=== PATIENT | female | born 1945 | race Caucasian/White ===

== ENCOUNTER 2017-07-08 10:00 | Outpatient (RCR) | payer MEDICARE, SELFPAY | END 2017-08-05 | LOC: PT 10:00 | PROVIDERS: PCP Family Medicine; Visit Provider Family Medicine | DX: M54.32 Sciatica, left side (principal); M54.31 Sciatica, right side | CPT/HCPCS: G8978; G8979; G8980; 97010; 97012; 97014; 97161; G0283 ==

== ENCOUNTER → 2017-07-27 | Outpatient (CLI) | payer MEDICARE, SELFPAY | PROVIDERS: Visit Provider Internal Medicine | DX: C50.911 Malignant neoplasm of unspecified site of right female breast (principal) | CPT/HCPCS: 36415; 80053; 85025 ==

== ENCOUNTER → 2017-08-03 | Outpatient (CLI) | payer MEDICARE, SELFPAY | PROVIDERS: Visit Provider Internal Medicine | DX: C50.911 Malignant neoplasm of unspecified site of right female breast (principal) | CPT/HCPCS: 36415; 80053; 85025 ==

== ENCOUNTER → 2017-08-31 08:10 | Outpatient (CLI) | payer MEDICARE, SELFPAY ==
[2017-08-31 09:23] LABS: Basophils # 0.1 K/mm3 (0-0.2); Basophils % 2.5 % (0.1-2.0); Eosinophils # 0.1 K/mm3 (0.0-0.4); Eosinophils % 2.7 % (0.1-12.0); Hematocrit 34.5 % (37.0-47.0); Hemoglobin 11.3 g/dL (12.2-16.2); Lymphocytes # 1.4 K/mm3 (0.7-4.5); Mean Corpuscular HGB Conc 32.8 g/dL (31.8-35.4); Mean Corpuscular Hemoglobin 33.8 pg (27.0-31.2); Mean Corpuscular Volume 103.3 fl (81-99); Monocytes # 0.2 K/mm3 (0.1-1.0); Monocytes % 6.2 % (1.7-9.3); Neutrophils # 1.4 K/mm3 (1.8-7.8); Neutrophils % 43.7 % (37.0-80.0); Platelet Count 147 K/mm3 (142-424); Red Blood Count 3.34 M/mm3 (4.20-5.40); Red Cell Distribution Width 15.6 % (11.5-17.5); White Blood Count 3.1 K/mm3 (4.8-10.8)
[2017-08-31 09:54] LABS: Alanine Aminotransferase 19 U/L (12-78); Albumin Level 3.9 gm/dL (3.4-5.0); Albumin/Globulin Ratio 1.5 (1.1-1.8); Alkaline Phosphatase 62 U/L (46-116); Aspartate Amino Transferase 17 U/L (15-37); Bilirubin,Total 0.4 mg/dL (0.2-1.0); Blood Urea Nitrogen 21 mg/dL (7-18); Calcium 8.4 mg/dL (8.5-10.1); Carbon Dioxide 28 mmol/L (21.0-32.0); Chloride 105 mmol/L (98-107); Creatinine,Serum 1.06 mg/dL (0.55-1.02); Estimated Glomerular Filt Rate 51 ml/min (>60); GFR (African American) 62 ML/MIN (>60); Globulin 2.6 gm/dl (1.3-3.2); Glucose 93 mg/dL (74-106); Sodium 142 mmol/L (136-145); Total Protein,Serum 6.5 gm/dL (6.4-8.2)
== END ==
PROVIDERS: PCP Family Medicine; Visit Provider Internal Medicine
DX: C50.919 Malignant neoplasm of unspecified site of unspecified female breast (principal)
CPT/HCPCS: 36415; 80053; 85025

== ENCOUNTER → 2017-10-04 08:08 | Outpatient (CLI) | payer MEDICARE, SELFPAY ==
[2017-10-04 08:36] LABS: Basophils # 0.1 K/mm3 (0-0.2); Basophils % 3.6 % (0.1-2.0); Eosinophils # 0.1 K/mm3 (0.0-0.4); Eosinophils % 3.4 % (0.1-12.0); Hematocrit 33.5 % (37.0-47.0); Hemoglobin 11.1 g/dL (12.2-16.2); Lymphocytes # 1.3 K/mm3 (0.7-4.5); Lymphocytes % 38.1 K/mm3 (10-50); Mean Corpuscular HGB Conc 33.1 g/dL (31.8-35.4); Mean Corpuscular Hemoglobin 34.4 pg (27.0-31.2); Mean Corpuscular Volume 103.9 fl (81-99); Mean Platelet Volume 8.2 fl (7.4-10.4); Monocytes # 0.3 K/mm3 (0.1-1.0); Monocytes % 8.9 % (1.7-9.3); Neutrophils # 1.6 K/mm3 (1.8-7.8); Platelet Count 244 K/mm3 (142-424); Red Blood Count 3.22 M/mm3 (4.20-5.40); White Blood Count 3.4 K/mm3 (4.8-10.8)
[2017-10-04 09:13] LABS: Alanine Aminotransferase 19 U/L (12-78); Albumin Level 3.8 gm/dL (3.4-5.0); Albumin/Globulin Ratio 1.5 (1.1-1.8); Alkaline Phosphatase 55 U/L (46-116); Anion Gap 12.9 mEq/L (5-15); Aspartate Amino Transferase 12 U/L (15-37); Bilirubin,Total 0.4 mg/dL (0.2-1.0); Blood Urea Nitrogen 22 mg/dL (7-18); Calcium 8.7 mg/dL (8.5-10.1); Carbon Dioxide 27 mmol/L (21.0-32.0); Chloride 106 mmol/L (98-107); Creatinine,Serum 1.22 mg/dL (0.55-1.02); Estimated Glomerular Filt Rate 43 ml/min (>60); GFR (African American) 52 ML/MIN (>60); Globulin 2.6 gm/dl (1.3-3.2); Glucose 95 mg/dL (74-106); Potassium 3.9 mmoL/L (3.5-5.1); Sodium 142 mmol/L (136-145); Total Protein,Serum 6.4 gm/dL (6.4-8.2)
== END ==
PROVIDERS: Visit Provider Internal Medicine
DX: C50.911 Malignant neoplasm of unspecified site of right female breast (principal); M85.80 Other specified disorders of bone density and structure, unspecified site
CPT/HCPCS: 36415; 80053; 85025

== ENCOUNTER 2017-10-11 08:46 | Outpatient (CLI) | payer MEDICARE, SELFPAY ==
[2017-10-11 09:00] VITALS: BP 123/67; PULSE 66; RESP 20; TEMP 36.4; O2SAT 96
[2017-10-11 10:15] VITALS: BP 125/74; PULSE 68; RESP 20; TEMP 36.9; O2SAT 97
== END 2017-10-11 10:20 | disposition home or self-care (01) ==
LOC: INF 08:46
PROVIDERS: Family Provider Family Medicine; PCP Family Medicine; Visit Provider Internal Medicine
DX: C50.911 Malignant neoplasm of unspecified site of right female breast (principal)
CPT/HCPCS: 96365; J3489

== ENCOUNTER → 2017-11-09 07:54 | Outpatient (CLI) | payer MEDICARE, SELFPAY ==
[2017-11-09 08:38] LABS: Basophils # 0.2 K/mm3 (0-0.2); Basophils % 3.7 % (0.1-2.0); Eosinophils # 0.2 K/mm3 (0.0-0.4); Eosinophils % 3.7 % (0.1-12.0); Hemoglobin 11.3 g/dL (12.2-16.2); Lymphocytes # 1.6 K/mm3 (0.7-4.5); Lymphocytes % 35.3 K/mm3 (10-50); Mean Corpuscular HGB Conc 32.4 g/dL (31.8-35.4); Mean Corpuscular Hemoglobin 34.4 pg (27.0-31.2); Mean Corpuscular Volume 106.1 fl (81-99); Mean Platelet Volume 7.6 fl (7.4-10.4); Monocytes # 0.4 K/mm3 (0.1-1.0); Monocytes % 7.7 % (1.7-9.3); Neutrophils # 2.3 K/mm3 (1.8-7.8); Neutrophils % 49.6 % (37.0-80.0); Platelet Count 392 K/mm3 (142-424); Red Cell Distribution Width 15.2 % (11.5-17.5); White Blood Count 4.6 K/mm3 (4.8-10.8)
[2017-11-09 10:42] LABS: Alanine Aminotransferase 17 U/L (12-78); Albumin Level 3.9 gm/dL (3.4-5.0); Albumin/Globulin Ratio 1.6 (1.1-1.8); Alkaline Phosphatase 58 U/L (46-116); Anion Gap 13.1 mEq/L (5-15); Aspartate Amino Transferase 17 U/L (15-37); Bilirubin,Total 0.5 mg/dL (0.2-1.0); Blood Urea Nitrogen 19 mg/dL (7-18); Calcium 8.9 mg/dL (8.5-10.1); Carbon Dioxide 27 mmol/L (21.0-32.0); Chloride 107 mmol/L (98-107); Creatinine,Serum 1.13 mg/dL (0.55-1.02); Estimated Glomerular Filt Rate 47 ml/min (>60); GFR (African American) 57 ML/MIN (>60); Globulin 2.5 gm/dl (1.3-3.2); Glucose 101 mg/dL (74-106); Potassium 4.1 mmoL/L (3.5-5.1); Sodium 143 mmol/L (136-145); Total Protein,Serum 6.4 gm/dL (6.4-8.2)
== END ==
PROVIDERS: Visit Provider Nurse Practitioner
DX: C50.911 Malignant neoplasm of unspecified site of right female breast (principal); D64.9 Anemia, unspecified; D70.9 Neutropenia, unspecified
CPT/HCPCS: 36415; 80053; 85025

== ENCOUNTER → 2017-12-06 08:12 | Outpatient (CLI) | payer MEDICARE, SELFPAY ==
[2017-12-06 08:42] LABS: Basophils # 0.1 K/mm3 (0-0.2); Basophils % 2.8 % (0.1-2.0); Eosinophils # 0.1 K/mm3 (0.0-0.4); Eosinophils % 2.1 % (0.1-12.0); Hematocrit 31.9 % (37.0-47.0); Lymphocytes # 1.2 K/mm3 (0.7-4.5); Lymphocytes % 45.7 K/mm3 (10-50); Mean Corpuscular HGB Conc 34.5 g/dL (31.8-35.4); Mean Corpuscular Hemoglobin 37.1 pg (27.0-31.2); Mean Corpuscular Volume 107.4 fl (81-99); Mean Platelet Volume 7.9 fl (7.4-10.4); Monocytes # 0.2 K/mm3 (0.1-1.0); Monocytes % 8.9 % (1.7-9.3); Neutrophils % 40.5 % (37.0-80.0); Platelet Count 155 K/mm3 (142-424); Red Blood Count 2.97 M/mm3 (4.20-5.40); Red Cell Distribution Width 15.2 % (11.5-17.5); White Blood Count 2.5 K/mm3 (4.8-10.8)
[2017-12-06 10:43] LABS: Alanine Aminotransferase 15 U/L (12-78); Albumin/Globulin Ratio 1.5 (1.1-1.8); Alkaline Phosphatase 50 U/L (46-116); Bilirubin,Total 0.5 mg/dL (0.2-1.0); Blood Urea Nitrogen 19 mg/dL (7-18); Calcium 9.3 mg/dL (8.5-10.1); Carbon Dioxide 26 mmol/L (21.0-32.0); Chloride 107 mmol/L (98-107); Creatinine,Serum 0.98 mg/dL (0.55-1.02); Estimated Glomerular Filt Rate 56 ml/min (>60); GFR (African American) 68 ML/MIN (>60); Globulin 2.7 gm/dl (1.3-3.2); Glucose 98 mg/dL (74-106); Sodium 143 mmol/L (136-145); Total Protein,Serum 6.7 gm/dL (6.4-8.2)
[2017-12-06 11:21] LABS: Anion Gap 14.4 mEq/L (5-15)
[2017-12-06 11:40] LABS: Aspartate Amino Transferase 23 U/L (15-37); Potassium 4.4 mmoL/L (3.5-5.1)
== END ==
PROVIDERS: Visit Provider Nurse Practitioner
DX: C50.911 Malignant neoplasm of unspecified site of right female breast (principal); D64.9 Anemia, unspecified; D70.9 Neutropenia, unspecified
CPT/HCPCS: 36415; 80053; 85025

== ENCOUNTER → 2017-12-13 08:03 | Outpatient (CLI) | payer MEDICARE, SELFPAY ==
[2017-12-13 08:44] LABS: Basophils # 0.1 K/mm3 (0-0.2); Basophils % 2.5 % (0.1-2.0); Eosinophils # 0.1 K/mm3 (0.0-0.4); Eosinophils % 1.9 % (0.1-12.0); Hematocrit 34.1 % (37.0-47.0); Hemoglobin 11.4 g/dL (12.2-16.2); Lymphocytes # 0.5 K/mm3 (0.7-4.5); Lymphocytes % 12.4 K/mm3 (10-50); Mean Corpuscular HGB Conc 33.3 g/dL (31.8-35.4); Mean Corpuscular Hemoglobin 36.1 pg (27.0-31.2); Mean Corpuscular Volume 108.2 fl (81-99); Mean Platelet Volume 7.5 fl (7.4-10.4); Monocytes # 0.3 K/mm3 (0.1-1.0); Monocytes % 7.2 % (1.7-9.3); Neutrophils # 3.1 K/mm3 (1.8-7.8); Neutrophils % 75.9 % (37.0-80.0); Platelet Count 335 K/mm3 (142-424); Red Blood Count 3.16 M/mm3 (4.20-5.40); Red Cell Distribution Width 14.7 % (11.5-17.5)
== END ==
PROVIDERS: Visit Provider Internal Medicine
DX: C50.911 Malignant neoplasm of unspecified site of right female breast (principal)
CPT/HCPCS: 36415; 85025

== ENCOUNTER → 2018-01-04 08:37 | Outpatient (CLI) | payer MEDICARE, SELFPAY ==
[2018-01-04 08:52] LABS: Basophils # 0.1 K/mm3 (0-0.2); Basophils % 2.7 % (0.1-2.0); Eosinophils # 0.1 K/mm3 (0.0-0.4); Eosinophils % 2.5 % (0.1-12.0); Hematocrit 33.9 % (37.0-47.0); Hemoglobin 10.6 g/dL (12.2-16.2); Lymphocytes # 0.8 K/mm3 (0.7-4.5); Mean Corpuscular HGB Conc 31.2 g/dL (31.8-35.4); Mean Corpuscular Hemoglobin 33.5 pg (27.0-31.2); Mean Corpuscular Volume 107.4 fl (81-99); Mean Platelet Volume 8.4 fl (7.4-10.4); Monocytes # 0.1 K/mm3 (0.1-1.0); Monocytes % 4.6 % (1.7-9.3); Neutrophils # 1.2 K/mm3 (1.8-7.8); Neutrophils % 53.1 % (37.0-80.0); Platelet Count 148 K/mm3 (142-424); Red Blood Count 3.15 M/mm3 (4.20-5.40); Red Cell Distribution Width 15.9 % (11.5-17.5); White Blood Count 2.2 K/mm3 (4.8-10.8)
[2018-01-04 09:46] LABS: Alanine Aminotransferase 15 U/L (12-78); Albumin Level 3.9 gm/dL (3.4-5.0); Albumin/Globulin Ratio 1.6 (1.1-1.8); Alkaline Phosphatase 49 U/L (46-116); Anion Gap 13.8 mEq/L (5-15); Aspartate Amino Transferase 14 U/L (15-37); Bilirubin,Total 0.6 mg/dL (0.2-1.0); Blood Urea Nitrogen 21 mg/dL (7-18); Calcium 9.1 mg/dL (8.5-10.1); Carbon Dioxide 26 mmol/L (21.0-32.0); Chloride 108 mmol/L (98-107); Creatinine,Serum 1.33 mg/dL (0.55-1.02); Estimated Glomerular Filt Rate 39 ml/min (>60); GFR (African American) 47 ML/MIN (>60); Globulin 2.5 gm/dl (1.3-3.2); Glucose 99 mg/dL (74-106); Potassium 4.8 mmoL/L (3.5-5.1); Sodium 143 mmol/L (136-145); Total Protein,Serum 6.4 gm/dL (6.4-8.2)
== END ==
PROVIDERS: Visit Provider Internal Medicine
DX: C50.911 Malignant neoplasm of unspecified site of right female breast (principal)
CPT/HCPCS: 36415; 80053; 85025

== ENCOUNTER 2018-01-16 09:00 | Outpatient (CLI) | payer MEDICARE, SELFPAY ==
[2018-01-16 09:36] VITALS: BP 116/56; PULSE 57; RESP 18; TEMP 36.7; O2SAT 98
[2018-01-16 09:51] VITALS: BP 114/54; PULSE 59; RESP 18; TEMP 36.7; O2SAT 97
[2018-01-16 10:05] VITALS: BP 111/67; PULSE 61; RESP 18; O2SAT 97
== END 2018-01-16 10:05 | disposition home or self-care (01) ==
LOC: INF 09:14
PROVIDERS: Family Provider Family Medicine; PCP Family Medicine; Visit Provider Internal Medicine
DX: C50.911 Malignant neoplasm of unspecified site of right female breast (principal)
CPT/HCPCS: 96365; J3489

== ENCOUNTER → 2018-01-31 07:42 | Outpatient (CLI) | payer MEDICARE, SELFPAY ==
[2018-01-31 08:08] LABS: Basophils # 0.2 K/mm3 (0-0.2); Basophils % 2.8 % (0.1-2.0); Eosinophils # 0.4 K/mm3 (0.0-0.4); Eosinophils % 6.2 % (0.1-12.0); Hemoglobin 11.2 g/dL (12.2-16.2); Lymphocytes # 1.6 K/mm3 (0.7-4.5); Lymphocytes % 25.1 K/mm3 (10-50); Mean Corpuscular HGB Conc 31.2 g/dL (31.8-35.4); Mean Corpuscular Hemoglobin 32.5 pg (27.0-31.2); Mean Corpuscular Volume 104.3 fl (81-99); Mean Platelet Volume 8.8 fl (7.4-10.4); Monocytes # 0.4 K/mm3 (0.1-1.0); Monocytes % 7.1 % (1.7-9.3); Neutrophils # 3.7 K/mm3 (1.8-7.8); Neutrophils % 58.9 % (37.0-80.0); Platelet Count 309 K/mm3 (142-424); Red Blood Count 3.45 M/mm3 (4.20-5.40); Red Cell Distribution Width 15.3 % (11.5-17.5); White Blood Count 6.2 K/mm3 (4.8-10.8)
[2018-01-31 08:51] LABS: Alanine Aminotransferase 25 U/L (12-78); Albumin Level 3.8 gm/dL (3.4-5.0); Albumin/Globulin Ratio 1.4 (1.1-1.8); Alkaline Phosphatase 64 U/L (46-116); Anion Gap 10.9 mEq/L (5-15); Aspartate Amino Transferase 20 U/L (15-37); Bilirubin,Total 0.4 mg/dL (0.2-1.0); Blood Urea Nitrogen 20 mg/dL (7-18); Carbon Dioxide 30 mmol/L (21.0-32.0); Chloride 107 mmol/L (98-107); Creatinine,Serum 1.07 mg/dL (0.55-1.02); Estimated Glomerular Filt Rate 50 ml/min (>60); GFR (African American) 61 ML/MIN (>60); Globulin 2.7 gm/dl (1.3-3.2); Glucose 110 mg/dL (74-106); Potassium 4.9 mmoL/L (3.5-5.1); Sodium 143 mmol/L (136-145); Total Protein,Serum 6.5 gm/dL (6.4-8.2)
== END ==
PROVIDERS: Visit Provider Internal Medicine
DX: C50.911 Malignant neoplasm of unspecified site of right female breast (principal)
CPT/HCPCS: 36415; 80053; 85025

== ENCOUNTER → 2018-03-01 07:09 | Outpatient (CLI) | payer MEDICARE, SELFPAY ==
[2018-03-01 07:24] LABS: Basophils # 0.1 K/mm3 (0-0.2); Basophils % 2.2 % (0.1-2.0); Eosinophils # 0.1 K/mm3 (0.0-0.4); Eosinophils % 2.9 % (0.1-12.0); Hematocrit 32.6 % (37.0-47.0); Hemoglobin 10.9 g/dL (12.2-16.2); Lymphocytes # 1.1 K/mm3 (0.7-4.5); Lymphocytes % 49.9 K/mm3 (10-50); Mean Corpuscular HGB Conc 33.5 g/dL (31.8-35.4); Mean Corpuscular Hemoglobin 34.8 pg (27.0-31.2); Mean Corpuscular Volume 103.7 fl (81-99); Mean Platelet Volume 8.4 fl (7.4-10.4); Monocytes # 0.2 K/mm3 (0.1-1.0); Monocytes % 8.5 % (1.7-9.3); Neutrophils # 0.8 K/mm3 (1.8-7.8); Neutrophils % 36.5 % (37.0-80.0); Platelet Count 199 K/mm3 (142-424); Red Blood Count 3.14 M/mm3 (4.20-5.40); Red Cell Distribution Width 17.9 % (11.5-17.5); White Blood Count 2.1 K/mm3 (4.8-10.8)
[2018-03-01 08:44] LABS: Alanine Aminotransferase 16 U/L (12-78); Albumin Level 4.1 gm/dL (3.4-5.0); Albumin/Globulin Ratio 1.6 (1.1-1.8); Alkaline Phosphatase 56 U/L (46-116); Anion Gap 11.4 mEq/L (5-15); Aspartate Amino Transferase 11 U/L (15-37); Bilirubin,Total 0.5 mg/dL (0.2-1.0); Blood Urea Nitrogen 23 mg/dL (7-18); Calcium 8.8 mg/dL (8.5-10.1); Carbon Dioxide 27 mmol/L (21.0-32.0); Chloride 109 mmol/L (98-107); Creatinine,Serum 1.22 mg/dL (0.55-1.02); Estimated Glomerular Filt Rate 43 ml/min (>60); GFR (African American) 52 ML/MIN (>60); Globulin 2.5 gm/dl (1.3-3.2); Glucose 105 mg/dL (74-106); Potassium 4.4 mmoL/L (3.5-5.1); Sodium 143 mmol/L (136-145); Total Protein,Serum 6.6 gm/dL (6.4-8.2)
== END ==
PROVIDERS: Visit Provider Internal Medicine
DX: C50.911 Malignant neoplasm of unspecified site of right female breast (principal)
CPT/HCPCS: 36415; 80053; 85025

== ENCOUNTER → 2018-03-15 07:40 | Outpatient (CLI) | payer MEDICARE, SELFPAY ==
[2018-03-15 07:57] LABS: Basophils # 0.2 K/mm3 (0-0.2); Basophils % 3.6 % (0.1-2.0); Eosinophils # 0.2 K/mm3 (0.0-0.4); Eosinophils % 4.1 % (0.1-12.0); Hematocrit 35.8 % (37.0-47.0); Hemoglobin 11.8 g/dL (12.2-16.2); Lymphocytes # 1.6 K/mm3 (0.7-4.5); Lymphocytes % 31.5 K/mm3 (10-50); Mean Corpuscular HGB Conc 32.8 g/dL (31.8-35.4); Mean Corpuscular Hemoglobin 33.8 pg (27.0-31.2); Mean Corpuscular Volume 102.9 fl (81-99); Mean Platelet Volume 7.8 fl (7.4-10.4); Monocytes # 0.4 K/mm3 (0.1-1.0); Monocytes % 8.2 % (1.7-9.3); Neutrophils # 2.6 K/mm3 (1.8-7.8); Neutrophils % 52.6 % (37.0-80.0); Platelet Count 358 K/mm3 (142-424); Red Blood Count 3.48 M/mm3 (4.20-5.40); Red Cell Distribution Width 16.8 % (11.5-17.5); White Blood Count 4.9 K/mm3 (4.8-10.8)
[2018-03-15 08:56] LABS: Alanine Aminotransferase 24 U/L (12-78); Albumin Level 4.1 gm/dL (3.4-5.0); Albumin/Globulin Ratio 1.6 (1.1-1.8); Alkaline Phosphatase 56 U/L (46-116); Anion Gap 11.7 mEq/L (5-15); Aspartate Amino Transferase 17 U/L (15-37); Bilirubin,Total 0.5 mg/dL (0.2-1.0); Blood Urea Nitrogen 24 mg/dL (7-18); Calcium 9.4 mg/dL (8.5-10.1); Carbon Dioxide 27 mmol/L (21.0-32.0); Chloride 107 mmol/L (98-107); Creatinine,Serum 1.16 mg/dL (0.55-1.02); Estimated Glomerular Filt Rate 46 ml/min (>60); GFR (African American) 55 ML/MIN (>60); Globulin 2.6 gm/dl (1.3-3.2); Glucose 104 mg/dL (74-106); Potassium 4.7 mmoL/L (3.5-5.1); Sodium 141 mmol/L (136-145); Total Protein,Serum 6.7 gm/dL (6.4-8.2)
== END ==
PROVIDERS: Visit Provider Internal Medicine
DX: C50.911 Malignant neoplasm of unspecified site of right female breast (principal); D64.9 Anemia, unspecified; D70.9 Neutropenia, unspecified
CPT/HCPCS: 36415; 80053; 85025

== ENCOUNTER 2018-04-12 08:56 | Outpatient (CLI) | payer MEDICARE, SELFPAY ==
[2018-04-12 08:58] VITALS: BMI 27.6
[2018-04-12 09:15] VITALS: BP 117/72; PULSE 57; RESP 18; TEMP 36.7
[2018-04-12 09:24] LABS: Basophils % 2.1 % (0.1-2.0); Eosinophils # 0.1 K/mm3 (0.0-0.4); Eosinophils % 2.9 % (0.1-12.0); Hematocrit 31.9 % (37.0-47.0); Hemoglobin 10.4 g/dL (12.2-16.2); Lymphocytes # 0.8 K/mm3 (0.7-4.5); Lymphocytes % 41.7 K/mm3 (10-50); Mean Corpuscular HGB Conc 32.7 g/dL (31.8-35.4); Mean Corpuscular Hemoglobin 33.5 pg (27.0-31.2); Mean Corpuscular Volume 102.4 fl (81-99); Mean Platelet Volume 7.5 fl (7.4-10.4); Monocytes # 0.1 K/mm3 (0.1-1.0); Monocytes % 6.8 % (1.7-9.3); Neutrophils # 0.9 K/mm3 (1.8-7.8); Neutrophils % 46.6 % (37.0-80.0); Platelet Count 162 K/mm3 (142-424); Red Blood Count 3.12 M/mm3 (4.20-5.40); Red Cell Distribution Width 17.4 % (11.5-17.5)
[2018-04-12 09:30] VITALS: BP 136/73; PULSE 52; RESP 18
[2018-04-12 09:44] LABS: Alanine Aminotransferase 16 U/L (12-78); Albumin Level 3.9 gm/dL (3.4-5.0); Albumin/Globulin Ratio 1.4 (1.1-1.8); Alkaline Phosphatase 52 U/L (46-116); Anion Gap 12.8 mEq/L (5-15); Aspartate Amino Transferase 12 U/L (15-37); Bilirubin,Total 0.5 mg/dL (0.2-1.0); Blood Urea Nitrogen 23 mg/dL (7-18); Calcium 8.8 mg/dL (8.5-10.1); Carbon Dioxide 27 mmol/L (21.0-32.0); Chloride 108 mmol/L (98-107); Creatinine Clearance Estimated 43 mL/min (0-300); Creatinine,Serum 1.37 mg/dL (0.55-1.02); Estimated Glomerular Filt Rate 38 ml/min (>60); GFR (African American) 46 ML/MIN (>60); Globulin 2.8 gm/dl (1.3-3.2); Glucose 106 mg/dL (74-106); Potassium 3.8 mmoL/L (3.5-5.1); Sodium 144 mmol/L (136-145); Total Protein,Serum 6.7 gm/dL (6.4-8.2)
== END 2018-04-12 09:45 | disposition home or self-care (01) ==
LOC: INF 08:56
PROVIDERS: Family Provider Family Medicine; PCP Family Medicine; Visit Provider Internal Medicine
DX: C50.911 Malignant neoplasm of unspecified site of right female breast (principal); D64.9 Anemia, unspecified; D70.9 Neutropenia, unspecified; Z17.0 Estrogen receptor positive status [ER+]
CPT/HCPCS: 80053; 85025; 96374; J3489

== ENCOUNTER → 2018-04-19 08:07 | Outpatient (CLI) | payer MEDICARE, SELFPAY ==
[2018-04-19 08:55] LABS: Basophils # 0.1 K/mm3 (0-0.2); Eosinophils # 0.1 K/mm3 (0.0-0.4); Eosinophils % 3.3 % (0.1-12.0); Hematocrit 33.3 % (37.0-47.0); Hemoglobin 10.9 g/dL (12.2-16.2); Lymphocytes # 1.2 K/mm3 (0.7-4.5); Lymphocytes % 37.3 K/mm3 (10-50); Mean Corpuscular HGB Conc 32.9 g/dL (31.8-35.4); Mean Corpuscular Hemoglobin 33.8 pg (27.0-31.2); Mean Corpuscular Volume 102.8 fl (81-99); Mean Platelet Volume 7.3 fl (7.4-10.4); Monocytes # 0.3 K/mm3 (0.1-1.0); Monocytes % 8.6 % (1.7-9.3); Neutrophils # 1.5 K/mm3 (1.8-7.8); Neutrophils % 47.8 % (37.0-80.0); Platelet Count 321 K/mm3 (142-424); Red Blood Count 3.24 M/mm3 (4.20-5.40); Red Cell Distribution Width 17.1 % (11.5-17.5); White Blood Count 3.2 K/mm3 (4.8-10.8)
== END ==
PROVIDERS: PCP Family Medicine; Visit Provider Internal Medicine Medical Oncology
DX: C50.911 Malignant neoplasm of unspecified site of right female breast (principal)
CPT/HCPCS: 36415; 85025

== ENCOUNTER → 2018-04-20 09:34 | Outpatient (CLI) | payer MEDICARE, SELFPAY ==
--- NOTE | 2018-04-20 09:55 | CT_ITS ---
CT chest w con HISTORY: Follow-up breast cancer ITS.REASON: HX OF BREAST CA ORDERING PHYSICIAN: Marisol Saldana MD PATIENT AGE: 73 years COMPARISON: 02/27/2016 TECHNIQUE: Axial images obtained following the administration of 75 mL of Isovue 370 . Sagittal, and coronal reformatted images are also generated and reviewed. All CT scans at the facility use one or more dose reduction, viz: automated exposure control, ma/kV adjustment per patient size (including targeted exams where dose is matched to indication, i.e. head), or iterative reconstruction technique. FINDINGS: The left lobe of the thyroid gland is enlarged with a isodense/hypodense nodule inferiorly at 2 x 1.4 cm previously approximately 1 cm. Consider ultrasound for further evaluation. There are few scattered small mediastinal lymph nodes which are not significantly changed. Coronary artery calcifications are present. Normal heart size. No evidence of pericardial effusion. No mediastinal or hilar mass or adenopathy. 5 mm noncalcified nodule is present in the right middle lobe not significantly changed. Parenchymal opacity is present in the right middle lobe medially unchanged and may be due to an area of fibrosis. Mild fibrotic changes are present in the left lung base laterally and posteriorly. No new nodules infiltrates or effusions. Postsurgical changes of the right breast. There are a few small lymph nodes in the right axilla largest of which is approximately 1.3 x 1 cm previously measuring 1.7 x 1.2 cm. There is an area of bony sclerosis which is is noted along the infra aspect of the T11 vertebral body which is more prominent on today's exam. The bony lytic lesion of 10 has improved. IMPRESSION: 1. No evidence of pulmonary metastasis. Stable right middle lobe nodule. No new nodules. 2. Enlarging left thyroid nodule. Consider ultrasound for further evaluation. 3. Enlarging sclerotic focus of the T11 vertebral body suggesting a sclerotic metastatic focus. The lytic lesion at T10 however has shown improvement.
--- NOTE | 2018-04-20 09:56 | CT_ITS ---
CT abdomen pelvis w con CLINICAL INDICATION: Follow-up breast cancer ITS.REASON: HX OF BREAST CA ORDERING PHYSICIAN: Marisol Saldana MD PATIENT AGE: 73 years COMPARISON: 02/07/2016 TECHNIQUE: Axial images obtained with sagittal and coronal reformats. All CT scans at the facility use one or more dose reduction, viz: automated exposure control, ma/kV adjustment per patient size (including targeted exams where dose is matched to indication, i.e. head), or iterative reconstruction technique. PROCEDURE: Oral Contrast: Redicat IV Contrast: 75 mL's of Isovue-370 performed in conjunction with the chest CT. FINDINGS: A subtle isodense areas present in the right hepatic lobe posteriorly and inferiorly on image #32 measuring 5 mm. This is of questionable clinical significance. There are 2 additional 4 mm isodensity is in the right hepatic lobe anteriorly on image #23.. The spleen, adrenal glands, pancreas and kidneys have an unremarkable appearance. No evidence of retroperitoneal or intraperitoneal adenopathy. No radio opaque gallstones. There are 3 small ventral abdominal wall hernias in the upper abdomen containing fat 1 on the right and 2 in the left paracentral region. Small umbilical hernia is present containing fat with minimal amount of small bowel protruding into the hernia defect. There is diverticulosis of the sigmoid colon. No evidence of diverticulitis. Coarse calcification involves the uterus consistent with fibroid involvement. No evidence of appendicitis intestinal structures or free air. There is lumbar scoliosis convex left with multilevel degenerative disc disease in the lumbar spine. Small sclerotic focus is present involving the ileum on the left measuring 6 mm not significantly changed. IMPRESSION: 1. There are at least 3 tiny isodensity's of the liver. These are too small to categorize. Consider 6 month follow-up as metastatic disease isn't consideration. 2. Small ventral abdominal wall hernias containing fat. 3. Sigmoid diverticulosis
== END ==
PROVIDERS: Family Provider Family Medicine; PCP Family Medicine; Visit Provider Internal Medicine Medical Oncology
DX: Z03.89 Encounter for observation for other suspected diseases and conditions ruled out (principal); C50.911 Malignant neoplasm of unspecified site of right female breast; D64.9 Anemia, unspecified
CPT/HCPCS: 71260; 74177; Q9967

== ENCOUNTER → 2018-05-17 08:07 | Outpatient (CLI) | payer MEDICARE, SELFPAY ==
[2018-05-17 09:19] LABS: Basophils # 0.1 K/mm3 (0-0.2); Basophils % 2.9 % (0.1-2.0); Eosinophils # 0.1 K/mm3 (0.0-0.4); Eosinophils % 2.7 % (0.1-12.0); Hematocrit 33.7 % (37.0-47.0); Lymphocytes # 0.8 K/mm3 (0.7-4.5); Lymphocytes % 39.2 K/mm3 (10-50); Mean Corpuscular HGB Conc 32.7 g/dL (31.8-35.4); Mean Corpuscular Hemoglobin 33.6 pg (27.0-31.2); Mean Corpuscular Volume 102.7 fl (81-99); Mean Platelet Volume 7.6 fl (7.4-10.4); Monocytes # 0.1 K/mm3 (0.1-1.0); Monocytes % 3.7 % (1.7-9.3); Neutrophils % 51.5 % (37.0-80.0); Platelet Count 140 K/mm3 (142-424); Red Blood Count 3.28 M/mm3 (4.20-5.40); Red Cell Distribution Width 16.6 % (11.5-17.5)
== END ==
PROVIDERS: PCP Family Medicine; Visit Provider Internal Medicine Medical Oncology
DX: D70.9 Neutropenia, unspecified (principal); D64.9 Anemia, unspecified; C50.911 Malignant neoplasm of unspecified site of right female breast
CPT/HCPCS: 36415; 85025

== ENCOUNTER → 2018-05-22 14:04 | Outpatient (CLI) | payer MEDICARE, SELFPAY ==
--- NOTE | 2018-05-22 14:06 | US_ITS ---
US thyroid HISTORY: Thyroid nodule seen on recent CT scan of the chest ITS.REASON: THYROMEGLY ORDERING PHYSICIAN: Marisol Saldana MD PATIENT AGE: 73 years Comparison: None FINDINGS: The right lobe is 4.1 x 1.5 x 1.6 cm. 10 x 6 mm iso to slightly hypoechoic nodule mid polar region 3 mm hypoechoic nodule lower pole 3 mm hypoechoic nodule lower pole The left lobe is 3.3 x 2.8 x 2.4 cm. 2.5 x 1.9 cm isoechoic nodule in the mid polar region on the left corresponding to the CT abnormality. This nodule does appear solid. The nodules well-circumscribed with a few scattered areas of decreased echogenicity within the nodule. IMPRESSION: 2.5 cm solid nodule involves the left lobe of the thyroid gland. This nodule has increased in size on the CT scan. Fine-needle aspiration with ultrasound guidance may be of further value.
== END ==
PROVIDERS: PCP Family Medicine; Visit Provider Internal Medicine Medical Oncology
DX: E01.0 Iodine-deficiency related diffuse (endemic) goiter (principal)
CPT/HCPCS: 76536

== ENCOUNTER → 2018-06-14 08:24 | Outpatient (CLI) | payer MEDICARE, SELFPAY ==
[2018-06-14 09:15] LABS: Basophils # 0.1 K/mm3 (0-0.2); Basophils % 2.8 % (0.1-2.0); Eosinophils % 1.8 % (0.1-12.0); Hematocrit 33.1 % (37.0-47.0); Hemoglobin 10.7 g/dL (12.2-16.2); Lymphocytes # 0.8 K/mm3 (0.7-4.5); Lymphocytes % 35.2 % (10-50); Mean Corpuscular HGB Conc 32.4 g/dL (31.8-35.4); Mean Corpuscular Hemoglobin 34.1 pg (27.0-31.2); Mean Corpuscular Volume 105.1 fl (81-99); Mean Platelet Volume 7.5 fl (7.4-10.4); Monocytes # 0.1 K/mm3 (0.1-1.0); Monocytes % 3.3 % (1.7-9.3); Neutrophils # 1.3 K/mm3 (1.8-7.8); Neutrophils % 56.9 % (37.0-80.0); Platelet Count 159 K/mm3 (142-424); Red Blood Count 3.15 M/mm3 (4.20-5.40); Red Cell Distribution Width 17.1 % (11.5-17.5); White Blood Count 2.3 K/mm3 (4.8-10.8)
[2018-06-14 10:02] LABS: Alanine Aminotransferase 20 U/L (12-78); Albumin Level 3.9 gm/dL (3.4-5.0); Albumin/Globulin Ratio 1.4 (1.1-1.8); Alkaline Phosphatase 52 U/L (46-116); Anion Gap 15.2 mEq/L (5-15); Aspartate Amino Transferase 18 U/L (15-37); Bilirubin,Total 0.6 mg/dL (0.2-1.0); Blood Urea Nitrogen 29 mg/dL (7-18); Carbon Dioxide 26 mmol/L (21.0-32.0); Chloride 105 mmol/L (98-107); Creatinine,Serum 1.38 mg/dL (0.55-1.02); Estimated Glomerular Filt Rate 37 ml/min (>60); GFR (African American) 45 ML/MIN (>60); Globulin 2.7 gm/dl (1.3-3.2); Glucose 98 mg/dL (74-106); Potassium 4.2 mmoL/L (3.5-5.1); Sodium 142 mmol/L (136-145); Total Protein,Serum 6.6 gm/dL (6.4-8.2)
== END ==
PROVIDERS: Visit Provider Internal Medicine Medical Oncology
DX: E04.9 Nontoxic goiter, unspecified (principal)
CPT/HCPCS: 36415; 80053; 85025

== ENCOUNTER → 2018-06-27 09:42 | Outpatient (CLI) | payer MEDICARE, SELFPAY ==
--- NOTE | 2018-06-27 09:46 | US_ITS ---
FNA w guidance, US thyroid HISTORY: ITS.REASON: THROID NODULE, BREAST CA ORDERING PHYSICIAN: Marisol Saldana MD PATIENT AGE: 73 years COMPARISON: 05/22/2018.. Prebiopsy exam: Ultrasound of the left lobe of thyroid gland once again demonstrates a 2.3 x 2 cm solid nodule in the mid polar region which was targeted for biopsy. Appropriate planning performed. TECHNIQUE: Following obtaining informed consent, using aseptic technique and local anesthesia with buffered lidocaine, fine-needle aspiration was performed of the nodule of interest using sonographic guidance. 3 passes were made into the nodule with a 25-gauge needle. Specimen was given to cytology. The patient tolerated the procedure well without evidence of immediate complications and left the ultrasound suite in stable condition. 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
== END ==
PROVIDERS: PCP Family Medicine; Visit Provider Internal Medicine Medical Oncology
DX: E04.1 Nontoxic single thyroid nodule (principal)
CPT/HCPCS: 10022; 76536; 88173

== ENCOUNTER 2018-07-11 09:09 | Outpatient (CLI) | payer MEDICARE, SELFPAY ==
[2018-07-11 09:09] VITALS: BMI 27.1
[2018-07-11 09:35] VITALS: BP 130/71; PULSE 68; RESP 20; TEMP 36.4; O2SAT 95
[2018-07-11 09:39] LABS: Basophils % 1.4 % (0.1-2.0); Eosinophils % 1.4 % (0.1-12.0); Hematocrit 31.5 % (37.0-47.0); Hemoglobin 10.5 g/dL (12.2-16.2); Lymphocytes # 0.9 K/mm3 (0.7-4.5); Mean Corpuscular HGB Conc 33.3 g/dL (31.8-35.4); Mean Corpuscular Hemoglobin 35.2 pg (27.0-31.2); Mean Corpuscular Volume 105.6 fl (81-99); Mean Platelet Volume 7.3 fl (7.4-10.4); Monocytes # 0.1 K/mm3 (0.1-1.0); Monocytes % 4.1 % (1.7-9.3); Neutrophils % 64.1 % (37.0-80.0); Platelet Count 185 K/mm3 (142-424); Red Blood Count 2.98 M/mm3 (4.20-5.40); Red Cell Distribution Width 16.6 % (11.5-17.5); White Blood Count 3.1 K/mm3 (4.8-10.8)
[2018-07-11 09:50] VITALS: BP 125/70; PULSE 68; RESP 20; TEMP 36.6; O2SAT 95
[2018-07-11 09:51] LABS: Alanine Aminotransferase 21 U/L (12-78); Albumin Level 3.1 gm/dL (3.4-5.0); Albumin/Globulin Ratio 0.8 (1.1-1.8); Alkaline Phosphatase 67 U/L (46-116); Anion Gap 13.3 mEq/L (5-15); Aspartate Amino Transferase 18 U/L (15-37); Bilirubin,Total 0.7 mg/dL (0.2-1.0); Blood Urea Nitrogen 13 mg/dL (7-18); Calcium 8.2 mg/dL (8.5-10.1); Carbon Dioxide 27 mmol/L (21.0-32.0); Chloride 99 mmol/L (98-107); Creatinine Clearance Estimated 48 mL/min (50-200); Creatinine,Serum 1.21 mg/dL (0.55-1.02); Estimated Glomerular Filt Rate 44 ml/min (>60); GFR (African American) 53 ML/MIN (>60); Globulin 3.7 gm/dl (1.3-3.2); Glucose 113 mg/dL (74-106); Potassium 3.3 mmoL/L (3.5-5.1); Sodium 136 mmol/L (136-145); Total Protein,Serum 6.8 gm/dL (6.4-8.2)
== END 2018-07-11 09:50 | disposition home or self-care (01) ==
LOC: INF 09:09
PROVIDERS: Visit Provider Internal Medicine Medical Oncology
DX: C50.911 Malignant neoplasm of unspecified site of right female breast (principal); D70.9 Neutropenia, unspecified; D64.9 Anemia, unspecified; Z17.0 Estrogen receptor positive status [ER+]
CPT/HCPCS: 80053; 85025; 96374; J3489

== ENCOUNTER 2018-07-24 09:30 | Outpatient (RCR) | payer MEDICARE, SELFPAY ==
--- NOTE | 2018-05-18 15:59 | HMH.PTOPEV ---
PT Outpatient Evaluation Rehab PT Outpatient Evaluation Start: 05/18/18 15:50 Freq: Status: Active Protocol: Document 05/18/18 15:52 PHORNE (Rec: 05/18/18 15:59 PHORNE [id number]) Electronically Signed By Gibran Medellin, PT 05/18/18 15:52 Outpatient Therapy Subjective History Subjective History Pt is 73 yowf who presents with c/o pain in right posterior and lateral hip x 10 yrs, but new episode of increased pain x ~ 1 mo. She reports no numbness or tingling in the right LE and pain only to mid thigh posteriorly. She has hx of breast CA with colon mets requiring colon resection ~ 2 yrs ago and right knee meniscus tear cause knee pain. Pain is worse with prolonged standing, better with sitting. Chief Complaint Pain Symptom Type Ache Sharp Symptoms Relieved By Rest/Positioning Symptoms Aggravated By Standing Prior Functional Limitations None Current Functional Limitations Standing Walking Symptom Description Intermittent Activity Dependent Level of pain today (0-10) 2 Pain scale - at its worst (0-10) 8 Lumbopelvic Eval Posture Lumbar Spine Posture Standing Position Fixed Scoliosis on (L) Palapation tenderness bilateral Lumbar/Sacral Palpation Findings Tenderness Lumbar/Sacral Palpation Overall Comment dolores SI Range of Motion Lumbar Spine Active Flexion Range of 0-65 Motion (degrees) Lumbar Spine Active Extension Range of 0-15 Motion (degrees) Left Lumbar Spine Lateral Flexion Active 0-15 Range of Motion (degrees) Right Lumbar Spine Lateral Flexion 0-15 Active Range of Motion (degrees) Manual Muscle Test Bilateral Knee Extension Strength Grade 5 Normal Knee Flexion Strength Grade 5 Normal Hip Flexion Strength Grade 4 Good Hip Abduction Strength Grade 4 Good Hip Adduction Strength Grade 5 Normal Hip External Rotation Strength Grade 5 Normal Hip Internal Rotation Strength Grade 5 Normal Hip Extension Strength Grade 5 Normal Gluteus Aristeo Strength Grade 5 Normal Extensor Hallucis Longus Strength Grade 5 Normal Ankle Dorsiflexion Strength Grade 5 Normal Gastronemius/Soleus Strength Grade 5 Normal DTR Rt Patellar 2+ Lt Patellar 2+ Rt Gastroc/Soleus 2+
== END 2018-07-24 09:35 | disposition home or self-care (01) ==
LOC: PT 09:30
PROVIDERS: Family Provider Family Medicine; PCP Family Medicine; Visit Provider Family Medicine
DX: M54.5 Low back pain (principal)
CPT/HCPCS: 97010; 97012; 97014; 97033; 97035; 97110; 97140; 97163; 97760; G0283

== ENCOUNTER → 2018-08-09 08:11 | Outpatient (CLI) | payer MEDICARE, SELFPAY ==
[2018-08-09 08:43] LABS: Basophils # 0.1 K/mm3 (0-0.2); Basophils % 2.7 % (0.1-2.0); Eosinophils % 2.1 % (0.1-12.0); Hematocrit 32.7 % (37.0-47.0); Hemoglobin 10.2 g/dL (12.2-16.2); Lymphocytes # 0.9 K/mm3 (0.7-4.5); Lymphocytes % 40.7 % (10-50); Mean Corpuscular HGB Conc 31.3 g/dL (31.8-35.4); Mean Corpuscular Hemoglobin 34.4 pg (27.0-31.2); Mean Platelet Volume 7.6 fl (7.4-10.4); Monocytes # 0.1 K/mm3 (0.1-1.0); Monocytes % 3.8 % (1.7-9.3); Neutrophils # 1.1 K/mm3 (1.8-7.8); Neutrophils % 50.7 % (37.0-80.0); Platelet Count 220 K/mm3 (142-424); Red Blood Count 2.97 M/mm3 (4.20-5.40); Red Cell Distribution Width 16.1 % (11.5-17.5); White Blood Count 2.2 K/mm3 (4.8-10.8)
[2018-08-09 09:47] LABS: Alanine Aminotransferase 20 U/L (12-78); Albumin Level 3.7 gm/dL (3.4-5.0); Albumin/Globulin Ratio 1.4 (1.1-1.8); Alkaline Phosphatase 62 U/L (46-116); Anion Gap 13.4 mEq/L (5-15); Aspartate Amino Transferase 21 U/L (15-37); Bilirubin,Total 0.5 mg/dL (0.2-1.0); Blood Urea Nitrogen 20 mg/dL (7-18); Calcium 8.7 mg/dL (8.5-10.1); Carbon Dioxide 27 mmol/L (21.0-32.0); Chloride 106 mmol/L (98-107); Creatinine,Serum 1.28 mg/dL (0.55-1.02); Estimated Glomerular Filt Rate 41 ml/min (>60); Free T4 (Free Thyroxine) 1.06 ng/dl (0.76-1.46); GFR (African American) 49 ML/MIN (>60); Globulin 2.7 gm/dl (1.3-3.2); Glucose 102 mg/dL (74-106); Potassium 4.4 mmoL/L (3.5-5.1); Sodium 142 mmol/L (136-145); Thyroid Stimulating Hormone 4.32 uIU/ml (0.358-3.740); Total Protein,Serum 6.4 gm/dL (6.4-8.2)
[2018-08-10 14:47] LABS: Calcium, Ionized 5.1 mg/dL (4.5-5.6); Thyroid Peroxidase Antibodies 15 IU/mL (0-34)
[2018-08-11 06:25] LABS: Thyroid Stimulating Immunoglob <0.10 IU/L (0.00-0.55)
[2018-08-12 21:46] LABS: Calcitonin <2.0 pg/mL (0.0-5.0)
== END ==
PROVIDERS: Visit Provider Otolaryngology
DX: E04.1 Nontoxic single thyroid nodule (principal)
CPT/HCPCS: 36415; 80053; 82308; 82330; 84439; 84443; 84445; 85025; 86376

== ENCOUNTER → 2018-08-14 11:59 | Outpatient (CLI) | payer MEDICARE, SELFPAY | PROVIDERS: PCP Family Medicine; Visit Provider Otolaryngology | DX: Z01.810 Encounter for preprocedural cardiovascular examination (principal); Z01.812 Encounter for preprocedural laboratory examination | CPT/HCPCS: 93005 ==

== ENCOUNTER → 2018-09-08 11:05 | Outpatient (CLI) | payer MEDICARE, SELFPAY ==
[2018-09-08 13:17] LABS: Calcium 9.2 mg/dL (8.5-10.1); Free T4 (Free Thyroxine) 1.89 ng/dl (0.76-1.46); Thyroid Stimulating Hormone 0.29 uIU/ml (0.358-3.740)
== END ==
PROVIDERS: Visit Provider Otolaryngology
DX: Z98.890 Other specified postprocedural states (principal); E05.90 Thyrotoxicosis, unspecified without thyrotoxic crisis or storm
CPT/HCPCS: 82310; 84439; 84443

== ENCOUNTER → 2018-09-13 08:14 | Outpatient (CLI) | payer MEDICARE, SELFPAY ==
[2018-09-13 08:57] LABS: Basophils # 0.1 K/mm3 (0-0.2); Basophils % 2.7 % (0.1-2.0); Eosinophils # 0.1 K/mm3 (0.0-0.4); Eosinophils % 2.4 % (0.1-12.0); Hematocrit 31.8 % (37.0-47.0); Lymphocytes % 46.7 % (10-50); Mean Corpuscular HGB Conc 31.6 g/dL (31.8-35.4); Mean Corpuscular Hemoglobin 35.1 pg (27.0-31.2); Mean Platelet Volume 7.5 fl (7.4-10.4); Monocytes # 0.1 K/mm3 (0.1-1.0); Monocytes % 4.8 % (1.7-9.3); Neutrophils % 43.4 % (37.0-80.0); Platelet Count 142 K/mm3 (142-424); Red Blood Count 2.86 M/mm3 (4.20-5.40); Red Cell Distribution Width 16.1 % (11.5-17.5); White Blood Count 2.2 K/mm3 (4.8-10.8)
[2018-09-13 10:23] LABS: Alanine Aminotransferase 25 U/L (12-78); Albumin Level 3.5 gm/dL (3.4-5.0); Albumin/Globulin Ratio 1.3 (1.1-1.8); Alkaline Phosphatase 72 U/L (46-116); Anion Gap 14.9 mEq/L (5-15); Aspartate Amino Transferase 17 U/L (15-37); Bilirubin,Total 0.4 mg/dL (0.2-1.0); Blood Urea Nitrogen 21 mg/dL (7-18); Calcium 8.5 mg/dL (8.5-10.1); Carbon Dioxide 26 mmol/L (21.0-32.0); Chloride 106 mmol/L (98-107); Creatinine,Serum 1.38 mg/dL (0.55-1.02); Estimated Glomerular Filt Rate 37 ml/min (>60); GFR (African American) 45 ML/MIN (>60); Globulin 2.6 gm/dl (1.3-3.2); Glucose 98 mg/dL (74-106); Potassium 4.9 mmoL/L (3.5-5.1); Sodium 142 mmol/L (136-145); Total Protein,Serum 6.1 gm/dL (6.4-8.2)
== END ==
PROVIDERS: Visit Provider Internal Medicine Medical Oncology
DX: C50.911 Malignant neoplasm of unspecified site of right female breast (principal); D64.9 Anemia, unspecified
CPT/HCPCS: 36415; 80053; 85025

== ENCOUNTER → 2018-09-28 13:43 | Outpatient (CLI) | payer MEDICARE, SELFPAY ==
[2018-09-28 14:24] LABS: Free T4 (Free Thyroxine) 1.97 ng/dl (0.76-1.46); Thyroid Stimulating Hormone 0.11 uIU/ml (0.358-3.740)
== END ==
PROVIDERS: Visit Provider Otolaryngology
DX: E03.9 Hypothyroidism, unspecified (principal)
CPT/HCPCS: 36415; 84439; 84443

== ENCOUNTER 2018-10-10 08:43 | Outpatient (CLI) | payer MEDICARE, SELFPAY ==
[2018-10-10 08:46] VITALS: BMI 26.6
[2018-10-10 09:07] LABS: Basophils # 0.1 K/mm3 (0-0.2); Basophils % 3.3 % (0.1-2.0); Eosinophils # 0.1 K/mm3 (0.0-0.4); Eosinophils % 2.4 % (0.1-12.0); Hematocrit 32.5 % (37.0-47.0); Hemoglobin 10.7 g/dL (12.2-16.2); Lymphocytes # 0.7 K/mm3 (0.7-4.5); Lymphocytes % 35.6 % (10-50); Mean Corpuscular HGB Conc 32.8 g/dL (31.8-35.4); Mean Corpuscular Hemoglobin 34.7 pg (27.0-31.2); Mean Corpuscular Volume 105.9 fl (81-99); Mean Platelet Volume 7.9 fl (7.4-10.4); Monocytes # 0.1 K/mm3 (0.1-1.0); Monocytes % 4.9 % (1.7-9.3); Neutrophils # 1.1 K/mm3 (1.8-7.8); Neutrophils % 53.7 % (37.0-80.0); Platelet Count 219 K/mm3 (142-424); Red Blood Count 3.07 M/mm3 (4.20-5.40)
[2018-10-10 09:29] VITALS: BP 122/58; PULSE 69; RESP 18; TEMP 36.5; O2SAT 97
[2018-10-10 09:44] LABS: Alanine Aminotransferase 37 U/L (12-78); Albumin Level 3.6 gm/dL (3.4-5.0); Albumin/Globulin Ratio 1.1 (1.1-1.8); Alkaline Phosphatase 87 U/L (46-116); Anion Gap 13.7 mEq/L (5-15); Aspartate Amino Transferase 36 U/L (15-37); Bilirubin,Total 0.6 mg/dL (0.2-1.0); Blood Urea Nitrogen 26 mg/dL (7-18); Calcium 9.2 mg/dL (8.5-10.1); Carbon Dioxide 27 mmol/L (21.0-32.0); Chloride 105 mmol/L (98-107); Creatinine Clearance Estimated 37 mL/min (50-200); Creatinine,Serum 1.49 mg/dL (0.55-1.02); Estimated Glomerular Filt Rate 34 ml/min (>60); GFR (African American) 42 ML/MIN (>60); Globulin 3.2 gm/dl (1.3-3.2); Glucose 94 mg/dL (74-106); Potassium 3.7 mmoL/L (3.5-5.1); Sodium 142 mmol/L (136-145); Total Protein,Serum 6.8 gm/dL (6.4-8.2)
[2018-10-10 10:00] VITALS: BP 118/56; PULSE 67; RESP 18; O2SAT 96
== END 2018-10-10 10:05 | disposition home or self-care (01) ==
LOC: INF 08:43
PROVIDERS: Visit Provider Internal Medicine Medical Oncology
DX: C50.911 Malignant neoplasm of unspecified site of right female breast (principal)
CPT/HCPCS: 80053; 85025; 96365; J3489

== ENCOUNTER → 2018-10-18 16:27 | Outpatient (CLI) | payer MEDICARE, SELFPAY ==
[2018-10-18 19:17] LABS: Blood Urea Nitrogen 25 mg/dL (7-18); Estimated Glomerular Filt Rate 37 ml/min (>60); GFR (African American) 45 ML/MIN (>60)
== END ==
PROVIDERS: Visit Provider Internal Medicine Medical Oncology
DX: C50.911 Malignant neoplasm of unspecified site of right female breast (principal)
CPT/HCPCS: 36415; 82565; 84520

== ENCOUNTER → 2018-10-19 08:46 | Outpatient (CLI) | payer MEDICARE, SELFPAY ==
--- NOTE | 2018-10-19 | CT_ITS ---
CT chest w con HISTORY: ITS.REASON: BREAST CA FOLLOWUP ORDERING PHYSICIAN: Marisol Saldana MD PATIENT AGE: 73 years COMPARISON: 04/20/2018 TECHNIQUE: Axial images obtained following the administration of 75 mL of Optiray 350 . Sagittal, and coronal reformatted images are also generated and reviewed. All CT scans at the facility use one or more dose reduction, viz: automated exposure control, ma/kV adjustment per patient size (including targeted exams where dose is matched to indication, i.e. head), or iterative reconstruction technique. FINDINGS: No mediastinal or hilar mass or adenopathy. There is mild pectus deformity of the sternum. No evidence of aortic aneurysm or dissection or central pulmonary embolus. There is a stable 5 mm nodule in the right middle lobe with atelectatic changes in the lung bases. No new pulmonary nodules are apparent. Postsurgical changes of the right breast once again noted. Previously noted nodule of the left lobe of thyroid gland is no longer apparent. There is mild thoracic scoliosis convex right. A mixed sclerotic/lytic lesion is present in the inferior endplate of T11 similar to the previous exam. Lucency is noted in the right aspect of the T10 vertebral body similar to the previous exam but much improved compared to an older study of 02/27/2016 IMPRESSION: Stable CT appearance of the chest with no convincing evidence of pulmonary metastasis. No change lesion of T11 consistent with bony metastasis. Lucent lesion T10 is unchanged
--- NOTE | 2018-10-19 | CT_ITS ---
CT abdomen pelvis w con CLINICAL INDICATION: ITS.REASON: BREAST CA FOLLOW UP ORDERING PHYSICIAN: Marisol Saldana MD PATIENT AGE: 73 years COMPARISON: 04/20/2018 TECHNIQUE: Axial images obtained with sagittal and coronal reformats. All CT scans at the facility use one or more dose reduction, viz: automated exposure control, ma/kV adjustment per patient size (including targeted exams where dose is matched to indication, i.e. head), or iterative reconstruction technique. PROCEDURE: Oral Contrast: Redicat IV Contrast: 75 mL Isovue-370 performed in conjunction with the chest CT. FINDINGS: There has been interval development of numerous hypodense lesions of the liver occupying both lobes of the liver. The largest lesion is in the right hepatic lobe posteriorly measuring 3.7 cm. These findings are consistent with metastatic disease. Spleen, adrenal glands, pancreas, gallbladder, and kidneys have an unremarkable appearance. There is a small ventral upper abdominal wall hernia slightly to the left containing fat and an additional left paracentral mid abdominal wall hernia containing fat. Small umbilical hernia is present which also contains fat. There is extensive colonic diverticulosis. Fibroid calcification is present within the uterus. No pelvic mass or abnormal fluid collection of the pelvis. No evidence of intestinal obstruction, free air, or diverticulitis or appendicitis. There are severe degenerative changes in the lumbar spine with lumbar scoliosis convex left. There is a small sclerotic focus in the left ilium unchanged. IMPRESSION: Interval development of numerous liver lesions consistent with metastatic disease. Other nonacute findings as described above
--- NOTE | 2018-10-19 11:10 | HMH.ITSHM ---
Current Home Medications as stated by this patient Divya Rizvi or employee's representative. []IBRANCE LETROLE HCTZ CALCIUM BIOTIN PROBIOTIC SYNTHYROPIS
== END ==
PROVIDERS: PCP Family Medicine; Visit Provider Internal Medicine Medical Oncology
DX: C50.911 Malignant neoplasm of unspecified site of right female breast (principal); Z03.89 Encounter for observation for other suspected diseases and conditions ruled out
CPT/HCPCS: 71260; 74177; Q9967

== ENCOUNTER → 2018-10-30 13:44 | Outpatient (CLI) | payer MEDICARE, SELFPAY ==
[2018-10-30 14:53] LABS: Blood Urea Nitrogen 24 mg/dL (7-18); Creatinine,Serum 1.19 mg/dL (0.55-1.02); Estimated Glomerular Filt Rate 44 ml/min (>60); GFR (African American) 54 ML/MIN (>60)
== END ==
PROVIDERS: Visit Provider Internal Medicine Medical Oncology
DX: C50.911 Malignant neoplasm of unspecified site of right female breast (principal); D64.9 Anemia, unspecified
CPT/HCPCS: 36415; 82565; 84520

== ENCOUNTER → 2018-10-31 09:43 | Outpatient (CLI) | payer MEDICARE, SELFPAY ==
--- NOTE | 2018-10-31 | CT_ITS ---
CT Biopsy Liver, CT abdomen wo con CLINICAL INDICATION: Multiple new liver lesions in this patient with history of breast cancer. Tissue diagnosis required ORDERING PHYSICIAN: Marisol Saldana MD PATIENT AGE: 73 years Comparison: 10/19/2018 CT abdomen: Nonenhanced exam performed for biopsy preparation once again shows a multiple varying sized isodense liver lesions suspicious for metastatic disease. Appropriate area was localized with the patient in slightly LPO position. TECHNIQUE: After time out was performed and following obtaining informed consent with moderate sedation with 0.5 mg of Versed and 25 mcg of fentanyl IV the area was marked in the right upper abdomen laterally. Under aseptic conditions and local anesthesia with 1% buffered lidocaine, an 18-gauge outer core needle was placed and through this a 19-gauge core biopsy needle was inserted. 2 cores were obtained and then an aspiration was performed with the outer core needle. Specimen was given to pathology. The patient tolerated the procedure well without evidence of immediate complication. The patient left the radiology suite in stable condition and was recovered an outpatient surgery. Pathology: Metastatic moderately differentiated adenocarcinoma consistent with breast primary. IMPRESSION: Successful and uneventful CT-guided core biopsy of the liver positive for metastatic moderately differentiated adenocarcinoma consistent with breast primary.
[2018-10-31 10:07] VITALS: BMI 26.6
[2018-10-31 10:42] LABS: Basophils # 0.1 K/mm3 (0-0.2); Basophils % 4.7 % (0.1-2.0); Eosinophils # 0.1 K/mm3 (0.0-0.4); Hematocrit 36.8 % (37.0-47.0); Hemoglobin 12.1 g/dL (12.2-16.2); Lymphocytes # 0.8 K/mm3 (0.7-4.5); Lymphocytes % 35.1 % (10-50); Mean Corpuscular HGB Conc 32.9 g/dL (31.8-35.4); Mean Corpuscular Hemoglobin 35.2 pg (27.0-31.2); Mean Corpuscular Volume 106.9 fl (81-99); Mean Platelet Volume 7.4 fl (7.4-10.4); Monocytes # 0.1 K/mm3 (0.1-1.0); Monocytes % 5.1 % (1.7-9.3); Neutrophils # 1.3 K/mm3 (1.8-7.8); Neutrophils % 57.8 % (37.0-80.0); Platelet Count 362 K/mm3 (142-424); Red Blood Count 3.44 M/mm3 (4.20-5.40); Red Cell Distribution Width 16.1 % (11.5-17.5); White Blood Count 2.3 K/mm3 (4.8-10.8)
[2018-10-31 10:52] LABS: Activated Partial Thrombo Time 28.5 seconds (23.6-34.0); INR 0.96 (0.9-1.1); Prothrombin Time 9.9 seconds (9.4-11.8)
== END ==
PROVIDERS: PCP Family Medicine; Visit Provider Internal Medicine Medical Oncology
DX: K76.9 Liver disease, unspecified (principal); C50.911 Malignant neoplasm of unspecified site of right female breast
CPT/HCPCS: 47000; 74150; 77012; 85025; 85610; 85730; 88173; 88305; 88307; 88342; 88360

== ENCOUNTER → 2018-11-09 07:49 | Outpatient (CLI) | payer MEDICARE, SELFPAY ==
[2018-11-09 08:19] LABS: Basophils # 0.1 K/mm3 (0-0.2); Eosinophils # 0.1 K/mm3 (0.0-0.4); Eosinophils % 3.5 % (0.1-12.0); Hematocrit 33.8 % (37.0-47.0); Hemoglobin 11.2 g/dL (12.2-16.2); Lymphocytes # 1.1 K/mm3 (0.7-4.5); Lymphocytes % 35.4 % (10-50); Mean Corpuscular HGB Conc 33.2 g/dL (31.8-35.4); Mean Corpuscular Volume 105.5 fl (81-99); Mean Platelet Volume 7.8 fl (7.4-10.4); Monocytes # 0.3 K/mm3 (0.1-1.0); Monocytes % 9.2 % (1.7-9.3); Neutrophils # 1.5 K/mm3 (1.8-7.8); Neutrophils % 47.8 % (37.0-80.0); Platelet Count 223 K/mm3 (142-424); Red Cell Distribution Width 15.4 % (11.5-17.5); White Blood Count 3.2 K/mm3 (4.8-10.8)
[2018-11-09 08:42] LABS: Alanine Aminotransferase 151 U/L (12-78); Albumin Level 3.8 gm/dL (3.4-5.0); Albumin/Globulin Ratio 1.4 (1.1-1.8); Alkaline Phosphatase 135 U/L (46-116); Anion Gap 15.2 mEq/L (5-15); Aspartate Amino Transferase 144 U/L (15-37); Bilirubin,Total 0.6 mg/dL (0.2-1.0); Blood Urea Nitrogen 19 mg/dL (7-18); Calcium 9.4 mg/dL (8.5-10.1); Carbon Dioxide 25 mmol/L (21.0-32.0); Chloride 106 mmol/L (98-107); Creatinine,Serum 1.18 mg/dL (0.55-1.02); Estimated Glomerular Filt Rate 45 ml/min (>60); GFR (African American) 54 ML/MIN (>60); Globulin 2.7 gm/dl (1.3-3.2); Glucose 95 mg/dL (74-106); Potassium 4.2 mmoL/L (3.5-5.1); Sodium 142 mmol/L (136-145); Total Protein,Serum 6.5 gm/dL (6.4-8.2)
== END ==
PROVIDERS: PCP Family Medicine; Visit Provider Internal Medicine Medical Oncology
DX: C50.911 Malignant neoplasm of unspecified site of right female breast (principal)
CPT/HCPCS: 36415; 80053; 85025

== ENCOUNTER → 2018-11-29 07:49 | Outpatient (CLI) | payer MEDICARE, SELFPAY ==
[2018-11-29 08:41] LABS: Basophils # 0.1 K/mm3 (0-0.2); Basophils % 1.3 % (0.1-2.0); Eosinophils # 0.3 K/mm3 (0.0-0.4); Eosinophils % 6.6 % (0.1-12.0); Hemoglobin 11.5 g/dL (12.2-16.2); Lymphocytes # 1.1 K/mm3 (0.7-4.5); Lymphocytes % 21.8 % (10-50); Mean Corpuscular HGB Conc 31.8 g/dL (31.8-35.4); Mean Corpuscular Hemoglobin 32.8 pg (27.0-31.2); Mean Corpuscular Volume 103.2 fl (81-99); Mean Platelet Volume 7.7 fl (7.4-10.4); Monocytes # 0.3 K/mm3 (0.1-1.0); Monocytes % 6.2 % (1.7-9.3); Neutrophils # 3.3 K/mm3 (1.8-7.8); Platelet Count 250 K/mm3 (142-424); Red Blood Count 3.49 M/mm3 (4.20-5.40); Red Cell Distribution Width 14.4 % (11.5-17.5); White Blood Count 5.2 K/mm3 (4.8-10.8)
[2018-11-29 10:32] LABS: Alanine Aminotransferase 103 U/L (12-78); Albumin Level 3.8 gm/dL (3.4-5.0); Albumin/Globulin Ratio 1.3 (1.1-1.8); Alkaline Phosphatase 197 U/L (46-116); Anion Gap 14.7 mEq/L (5-15); Aspartate Amino Transferase 193 U/L (15-37); Bilirubin,Total 0.6 mg/dL (0.2-1.0); Blood Urea Nitrogen 22 mg/dL (7-18); Carbon Dioxide 25 mmol/L (21.0-32.0); Chloride 104 mmol/L (98-107); Creatinine,Serum 1.17 mg/dL (0.55-1.02); Estimated Glomerular Filt Rate 45 ml/min (>60); GFR (African American) 55 ML/MIN (>60); Glucose 95 mg/dL (74-106); Potassium 4.7 mmoL/L (3.5-5.1); Sodium 139 mmol/L (136-145); Total Protein,Serum 6.8 gm/dL (6.4-8.2)
== END ==
PROVIDERS: Visit Provider Internal Medicine Medical Oncology
DX: C50.911 Malignant neoplasm of unspecified site of right female breast (principal)
CPT/HCPCS: 36415; 80053; 85025

== ENCOUNTER → 2018-12-07 08:35 | Outpatient (CLI) | payer MEDICARE, SELFPAY ==
[2018-12-07 08:56] LABS: Basophils # 0.1 K/mm3 (0-0.2); Eosinophils # 0.2 K/mm3 (0.0-0.4); Hematocrit 36.1 % (37.0-47.0); Hemoglobin 12.1 g/dL (12.2-16.2); Lymphocytes % 19.7 % (10-50); Mean Corpuscular HGB Conc 33.4 g/dL (31.8-35.4); Mean Corpuscular Hemoglobin 32.5 pg (27.0-31.2); Mean Corpuscular Volume 97.2 fl (81-99); Mean Platelet Volume 8.1 fl (7.4-10.4); Monocytes # 0.5 K/mm3 (0.1-1.0); Monocytes % 10.3 % (1.7-9.3); Neutrophils # 3.2 K/mm3 (1.8-7.8); Platelet Count 133 K/mm3 (142-424); Red Blood Count 3.72 M/mm3 (4.20-5.40); Red Cell Distribution Width 14.7 % (11.5-17.5); White Blood Count 4.9 K/mm3 (4.8-10.8)
[2018-12-07 10:35] LABS: Alanine Aminotransferase 130 U/L (12-78); Albumin Level 3.3 gm/dL (3.4-5.0); Albumin/Globulin Ratio 0.9 (1.1-1.8); Alkaline Phosphatase 232 U/L (46-116); Anion Gap 16.9 mEq/L (5-15); Aspartate Amino Transferase 266 U/L (15-37); Bilirubin,Total 0.8 mg/dL (0.2-1.0); Blood Urea Nitrogen 17 mg/dL (7-18); Calcium 9.1 mg/dL (8.5-10.1); Carbon Dioxide 23 mmol/L (21.0-32.0); Chloride 103 mmol/L (98-107); Creatinine,Serum 0.97 mg/dL (0.55-1.02); Estimated Glomerular Filt Rate 56 ml/min (>60); GFR (African American) 68 ML/MIN (>60); Globulin 3.5 gm/dl (1.3-3.2); Glucose 108 mg/dL (74-106); Potassium 3.9 mmoL/L (3.5-5.1); Sodium 139 mmol/L (136-145); Total Protein,Serum 6.8 gm/dL (6.4-8.2)
== END ==
PROVIDERS: Visit Provider Internal Medicine Medical Oncology
DX: C50.911 Malignant neoplasm of unspecified site of right female breast (principal); D64.9 Anemia, unspecified
CPT/HCPCS: 36415; 80053; 85025

== ENCOUNTER → 2018-12-08 09:04 | Outpatient (CLI) | payer MEDICARE, SELFPAY ==
--- NOTE | 2018-12-08 09:09 | CT_ITS ---
CT chest w con HISTORY: Follow-up metastatic breast cancer ITS.REASON: BREAST CA ORDERING PHYSICIAN: Marisol Saldana MD PATIENT AGE: 73 years COMPARISON: 10/19/2018 TECHNIQUE: Axial images obtained following the administration of 75 mL of Optiray 350 . Sagittal, and coronal reformatted images are also generated and reviewed. All CT scans at the facility use one or more dose reduction, viz: automated exposure control, ma/kV adjustment per patient size (including targeted exams where dose is matched to indication, i.e. head), or iterative reconstruction technique. FINDINGS: No mediastinal or hilar adenopathy. Stable 5 mm nodule in the right middle lobe anteriorly. 3 mm nodule right middle lobe slightly more apparent but could be related to slice orientation. There are scattered atelectatic changes in the lung bases. No new nodules are evident. There is mild thoracic scoliosis convex right. No change in the sclerotic focus along the inferior aspect of T11 and the lucency of the right aspect of T10. IMPRESSION: Stable CT appearance of the chest with no convincing evidence of metastatic disease of the lungs No change in the sclerotic lesion at T11 in the lucency of T10 vertebral bodies
--- NOTE | 2018-12-08 09:09 | CT_ITS ---
CT abdomen pelvis w con CLINICAL INDICATION: Follow-up metastatic breast cancer ITS.REASON: BREAST CA ORDERING PHYSICIAN: Marisol Saldana MD PATIENT AGE: 73 years COMPARISON: 10/19/2018 TECHNIQUE: Axial images obtained with sagittal and coronal reformats. All CT scans at the facility use one or more dose reduction, viz: automated exposure control, ma/kV adjustment per patient size (including targeted exams where dose is matched to indication, i.e. head), or iterative reconstruction technique. PROCEDURE: Oral Contrast: Redicat IV Contrast: 75 mL Optiray 350. FINDINGS: There are innumerable metastatic lesions of the liver. There is a mixed pattern with some lesions slightly larger and some of the lesions slightly smaller. The largest lesion in the right hepatic lobe inferiorly is smaller previously measured 3.7 cm now measured at 2.6 cm. There is moderate amount of pericholecystic fluid. No biliary dilatation evident. The spleen, adrenal glands, pancreas, and kidneys have an unremarkable appearance. No intestinal obstruction or free air. No pelvic mass abnormal fluid collection or focal inflammatory change. There is sigmoid diverticulosis with no evidence of diverticulitis. Fibroid calcification involves the uterus. Small abdominal wall hernias are once again noted containing fat. There are degenerative changes of lumbar spine with scoliosis convex left and kyphosis. Small sclerotic focus involves the left ilium unchanged at millimeters. IMPRESSION: Multiple liver lesions once again noted consistent with metastatic disease. There is a mixed response with some lesions being slightly more prominent and others being smaller. The largest lesion in the right hepatic lobe is smaller.
--- NOTE | 2018-12-08 09:47 | HMH.ITSHM ---
Current Home Medications as stated by this patient Divya Rizvi or circulation representative. []IBRANCE LETROZOLE BISOPROLOL CALCIUM APRICOT MULTIVITAMIN BIOTIN PROBIOTIC OSTEO BI FLEX
== END ==
PROVIDERS: PCP Family Medicine; Visit Provider Internal Medicine Medical Oncology
DX: C50.911 Malignant neoplasm of unspecified site of right female breast (principal)
CPT/HCPCS: 71260; 74177; Q9967

== ENCOUNTER 2018-12-12 09:20 | Outpatient (CLI) | payer MEDICARE, SELFPAY ==
[2018-12-12 11:10] VITALS: BP 138/93; PULSE 68; RESP 18; TEMP 36.3; O2SAT 95
[2018-12-12 11:25] VITALS: BP 141/75; PULSE 68; RESP 18
[2018-12-12 11:40] VITALS: BP 138/70; PULSE 73; RESP 16
[2018-12-12 11:55] VITALS: BP 145/67; PULSE 72; RESP 16
[2018-12-12 12:10] VITALS: BP 153/69; PULSE 76; RESP 16
[2018-12-12 12:25] VITALS: BP 138/70; PULSE 73; RESP 18
== END 2018-12-12 12:40 | disposition home or self-care (01) ==
LOC: INF 09:38
PROVIDERS: Visit Provider Internal Medicine Medical Oncology
DX: Z51.11 Encounter for antineoplastic chemotherapy (principal); C50.911 Malignant neoplasm of unspecified site of right female breast
CPT/HCPCS: 96413; 96417; J8501; J9045; J9201; Q0166

== ENCOUNTER 2018-12-21 09:55 | Outpatient (CLI) | payer MEDICARE, SELFPAY ==
[2018-12-21 09:57] VITALS: BMI 24.7
[2018-12-21 10:11] LABS: Basophils % 0.7 % (0.1-2.0); Eosinophils # 0.1 K/mm3 (0.0-0.4); Eosinophils % 2.2 % (0.1-12.0); Hemoglobin 11.2 g/dL (12.2-16.2); Lymphocytes # 1.1 K/mm3 (0.7-4.5); Mean Corpuscular HGB Conc 33.9 g/dL (31.8-35.4); Mean Corpuscular Hemoglobin 32.5 pg (27.0-31.2); Mean Corpuscular Volume 95.8 fl (81-99); Mean Platelet Volume 8.4 fl (7.4-10.4); Monocytes # 0.4 K/mm3 (0.1-1.0); Monocytes % 11.7 % (1.7-9.3); Neutrophils # 1.6 K/mm3 (1.8-7.8); Neutrophils % 51.4 % (37.0-80.0); Platelet Count 169 K/mm3 (142-424); Red Blood Count 3.45 M/mm3 (4.20-5.40); Red Cell Distribution Width 15.7 % (11.5-17.5); White Blood Count 3.1 K/mm3 (4.8-10.8)
[2018-12-21 10:24] LABS: Alanine Aminotransferase 495 U/L (12-78); Albumin Level 3.1 gm/dL (3.4-5.0); Albumin/Globulin Ratio 0.8 (1.1-1.8); Alkaline Phosphatase 269 U/L (46-116); Anion Gap 16.8 mEq/L (5-15); Aspartate Amino Transferase 520 U/L (15-37); Bilirubin,Total 0.7 mg/dL (0.2-1.0); Blood Urea Nitrogen 15 mg/dL (7-18); Carbon Dioxide 23 mmol/L (21.0-32.0); Chloride 102 mmol/L (98-107); Creatinine Clearance Estimated 50 mL/min (50-200); Creatinine,Serum 1.06 mg/dL (0.55-1.02); Estimated Glomerular Filt Rate 51 ml/min (>60); GFR (African American) 61 ML/MIN (>60); Glucose 135 mg/dL (74-106); Potassium 3.8 mmoL/L (3.5-5.1); Sodium 138 mmol/L (136-145); Total Protein,Serum 7.1 gm/dL (6.4-8.2)
[2018-12-21 13:00] VITALS: BP 123/57; PULSE 61; RESP 18
[2018-12-21 13:15] VITALS: BP 113/68; PULSE 66; RESP 18
[2018-12-21 13:30] VITALS: BP 111/60; PULSE 64; RESP 18
== END 2018-12-21 13:45 | disposition home or self-care (01) ==
LOC: INF 09:55
PROVIDERS: Visit Provider Internal Medicine Medical Oncology
DX: C50.911 Malignant neoplasm of unspecified site of right female breast (principal); Z51.11 Encounter for antineoplastic chemotherapy
CPT/HCPCS: 80053; 85025; 96413; J8501; J9201; Q0166

== ENCOUNTER → 2018-12-25 13:31 | Outpatient (CLI) | payer MEDICARE, SELFPAY ==
--- NOTE | 2018-12-25 13:34 | MR_ITS ---
MR head/brain wo/w con HISTORY: Metastatic Breast cancer, off balance, vertigo ITS.REASON: BREAST CANCER ORDERING PHYSICIAN: Marisol Saldana MD PATIENT AGE: 73 years Comparison: None TECHNIQUE: Standard multiplanar multiecho sequences are performed without and with gadolinium enhancement. FINDINGS: No midline shift, mass effect, intracranial hemorrhage or hydrocephalus is evident. No evidence of acute infarction. No enhancing lesions are evident. The cerebellopontine angles, cerebellum, and brainstem are unremarkable. There is some minimal periventricular and subcortical T2 white matter hyperintensity noted suggesting minimal ischemic gliotic change from microvascular disease. The calvarium has an unremarkable appearance. No mastoid effusion or sinus air-fluid level. The pituitary and optic chiasm and corpus callosum and craniocervical junction are unremarkable. There are perivascular dilated spaces noted. IMPRESSION: 1. No acute intracranial findings. 2. No convincing evidence of metastatic disease.
--- NOTE | 2018-12-25 15:34 | HMH.ITSHM ---
Current Home Medications as stated by this patient Divya Rizvi or workforce services representative. []BISOPROLOL-HYDROCHLOROTHIAZIDE CALCIUM CARBONATE GLUCOSAMINE- CHONDROITIN LACTOBALLUS LEVOTHYROXINE MULTIVITAMIN NAPROXEN ONDANSETRON
== END ==
PROVIDERS: PCP Family Medicine; Visit Provider Internal Medicine Medical Oncology
DX: C50.911 Malignant neoplasm of unspecified site of right female breast (principal); R26.81 Unsteadiness on feet
CPT/HCPCS: 70553; A9576

== ENCOUNTER → 2018-12-28 10:39 | Outpatient (CLI) | payer MEDICARE, SELFPAY ==
--- NOTE | 2018-12-28 10:44 | XR_ITS ---
EXAM: XR cervical spine 5V HISTORY: ITS.REASON: NECK PAIN ORDERING PHYSICIAN: Benny Mora MD PATIENT AGE: 73 years COMPARISON: None FINDINGS: There is straightening of the cervical lordosis. Multilevel degenerative disc disease is present at C3-C4, C4-C5, C5-C6, and C6-C7. No significant foraminal narrowing is evident. Facet hypertrophic changes are present from C3 to C6. Incidental vascular calcifications noted of the carotid arteries. Patient's head is somewhat tilted toward the right and could be due to positioning or muscle spasm. IMPRESSION: Degenerative disc disease with facet arthritic change
== END ==
PROVIDERS: PCP Family Medicine; Visit Provider Family Medicine
DX: M54.2 Cervicalgia (principal)
CPT/HCPCS: 72050

== ENCOUNTER 2019-01-04 08:20 | Outpatient (CLI) | payer MEDICARE, SELFPAY ==
[2019-01-04 08:35] VITALS: BMI 24.7
[2019-01-04 08:50] LABS: Basophils # 0.1 K/mm3 (0-0.2); Basophils % 1.3 % (0.1-2.0); Eosinophils # 0.1 K/mm3 (0.0-0.4); Lymphocytes % 21.5 % (10-50); Mean Corpuscular HGB Conc 33.5 g/dL (31.8-35.4); Mean Corpuscular Hemoglobin 32.3 pg (27.0-31.2); Mean Corpuscular Volume 96.7 fl (81-99); Mean Platelet Volume 7.4 fl (7.4-10.4); Monocytes # 0.5 K/mm3 (0.1-1.0); Monocytes % 11.4 % (1.7-9.3); Neutrophils # 3.1 K/mm3 (1.8-7.8); Neutrophils % 63.8 % (37.0-80.0); Platelet Count 500 K/mm3 (142-424); Red Blood Count 3.41 M/mm3 (4.20-5.40); Red Cell Distribution Width 19.8 % (11.5-17.5); White Blood Count 4.8 K/mm3 (4.8-10.8)
[2019-01-04 09:04] LABS: Alanine Aminotransferase 189 U/L (12-78); Albumin/Globulin Ratio 0.8 (1.1-1.8); Alkaline Phosphatase 252 U/L (46-116); Anion Gap 15.3 mEq/L (5-15); Aspartate Amino Transferase 210 U/L (15-37); Bilirubin,Total 0.8 mg/dL (0.2-1.0); Blood Urea Nitrogen 15 mg/dL (7-18); Calcium 9.4 mg/dL (8.5-10.1); Carbon Dioxide 24 mmol/L (21.0-32.0); Chloride 103 mmol/L (98-107); Creatinine Clearance Estimated 48 mL/min (50-200); Creatinine,Serum 1.07 mg/dL (0.55-1.02); Estimated Glomerular Filt Rate 50 ml/min (>60); GFR (African American) 61 ML/MIN (>60); Globulin 3.7 gm/dl (1.3-3.2); Glucose 90 mg/dL (74-106); Potassium 4.3 mmoL/L (3.5-5.1); Sodium 138 mmol/L (136-145); Total Protein,Serum 6.7 gm/dL (6.4-8.2)
[2019-01-04 11:10] VITALS: BP 118/75; PULSE 73; RESP 18; TEMP 36.1
[2019-01-04 11:25] VITALS: BP 157/78; PULSE 65; RESP 18
[2019-01-04 11:40] VITALS: BP 135/72; PULSE 70; RESP 16
[2019-01-04 11:55] VITALS: BP 141/85; PULSE 73; RESP 16
[2019-01-04 12:10] VITALS: BP 113/58; PULSE 65; RESP 16
[2019-01-04 12:25] VITALS: BP 122/57; PULSE 66; RESP 18
== END 2019-01-04 12:35 | disposition home or self-care (01) ==
LOC: INF 08:40
PROVIDERS: Visit Provider Internal Medicine Medical Oncology
DX: C50.911 Malignant neoplasm of unspecified site of right female breast (principal); D70.9 Neutropenia, unspecified; D64.9 Anemia, unspecified; R26.9 Unspecified abnormalities of gait and mobility
CPT/HCPCS: 80053; 85025; 96413; 96417; J8501; J9045; J9201; Q0166

== ENCOUNTER 2019-01-11 08:10 | Outpatient (CLI) | payer MEDICARE, SELFPAY ==
[2019-01-11 08:19] VITALS: BMI 24.7
[2019-01-11 08:58] LABS: Basophils % 1.4 % (0.1-2.0); Hematocrit 31.3 % (37.0-47.0); Hemoglobin 9.8 g/dL (12.2-16.2); Lymphocytes # 0.9 K/mm3 (0.7-4.5); Lymphocytes % 37.6 % (10-50); Mean Corpuscular HGB Conc 31.4 g/dL (31.8-35.4); Mean Corpuscular Hemoglobin 30.2 pg (27.0-31.2); Mean Corpuscular Volume 96.4 fl (81-99); Mean Platelet Volume 7.1 fl (7.4-10.4); Monocytes # 0.2 K/mm3 (0.1-1.0); Monocytes % 8.7 % (1.7-9.3); Neutrophils # 1.3 K/mm3 (1.8-7.8); Neutrophils % 51.2 % (37.0-80.0); Platelet Count 315 K/mm3 (142-424); Red Blood Count 3.25 M/mm3 (4.20-5.40); Red Cell Distribution Width 19.3 % (11.5-17.5); White Blood Count 2.5 K/mm3 (4.8-10.8)
[2019-01-11 09:41] LABS: Alanine Aminotransferase 176 U/L (12-78); Albumin/Globulin Ratio 0.9 (1.1-1.8); Alkaline Phosphatase 227 U/L (46-116); Anion Gap 14.1 mEq/L (5-15); Aspartate Amino Transferase 192 U/L (15-37); Bilirubin,Total 0.7 mg/dL (0.2-1.0); Blood Urea Nitrogen 15 mg/dL (7-18); Carbon Dioxide 26 mmol/L (21.0-32.0); Chloride 104 mmol/L (98-107); Creatinine Clearance Estimated 52 mL/min (50-200); Creatinine,Serum 0.96 mg/dL (0.55-1.02); Estimated Glomerular Filt Rate 57 ml/min (>60); GFR (African American) 69 ML/MIN (>60); Globulin 3.2 gm/dl (1.3-3.2); Glucose 87 mg/dL (74-106); Potassium 4.1 mmoL/L (3.5-5.1); Sodium 140 mmol/L (136-145); Total Protein,Serum 6.2 gm/dL (6.4-8.2)
[2019-01-11 10:00] VITALS: BP 114/64; PULSE 70; RESP 18; TEMP 36; O2SAT 94
[2019-01-11 10:15] VITALS: BP 100/57; PULSE 70; RESP 18
[2019-01-11 10:30] VITALS: BP 101/60; PULSE 72; RESP 16
[2019-01-12 20:48] LABS: Vitamin B12 715 pg/mL (232-1245)
== END 2019-01-11 10:40 | disposition home or self-care (01) ==
LOC: INF 08:17
PROVIDERS: Visit Provider Internal Medicine Medical Oncology
DX: Z51.11 Encounter for antineoplastic chemotherapy (principal); C50.911 Malignant neoplasm of unspecified site of right female breast
CPT/HCPCS: 80053; 82607; 85025; 96413; J8501; J9201; Q0166

== ENCOUNTER 2019-01-25 09:10 | Outpatient (CLI) | payer MEDICARE, SELFPAY ==
[2019-01-25 09:15] VITALS: BMI 25.1
[2019-01-25 09:33] LABS: Basophils % 1.5 % (0.1-2.0); Eosinophils # 0.1 K/mm3 (0.0-0.4); Eosinophils % 2.8 % (0.1-12.0); Hematocrit 28.8 % (37.0-47.0); Hemoglobin 8.8 g/dL (12.2-16.2); Lymphocytes # 0.9 K/mm3 (0.7-4.5); Lymphocytes % 31.5 % (10-50); Mean Corpuscular HGB Conc 30.6 g/dL (31.8-35.4); Mean Corpuscular Hemoglobin 30.7 pg (27.0-31.2); Mean Corpuscular Volume 100.4 fl (81-99); Mean Platelet Volume 8.5 fl (7.4-10.4); Monocytes # 0.3 K/mm3 (0.1-1.0); Monocytes % 9.4 % (1.7-9.3); Neutrophils # 1.5 K/mm3 (1.8-7.8); Neutrophils % 54.7 % (37.0-80.0); Platelet Count 195 K/mm3 (142-424); Red Blood Count 2.86 M/mm3 (4.20-5.40); Red Cell Distribution Width 23.8 % (11.5-17.5); White Blood Count 2.7 K/mm3 (4.8-10.8)
[2019-01-25 09:54] LABS: Alanine Aminotransferase 91 U/L (12-78); Albumin Level 2.8 gm/dL (3.4-5.0); Albumin/Globulin Ratio 0.9 (1.1-1.8); Alkaline Phosphatase 188 U/L (46-116); Anion Gap 14.6 mEq/L (5-15); Aspartate Amino Transferase 134 U/L (15-37); Bilirubin,Total 0.8 mg/dL (0.2-1.0); Blood Urea Nitrogen 15 mg/dL (7-18); Carbon Dioxide 25 mmol/L (21.0-32.0); Chloride 107 mmol/L (98-107); Creatinine Clearance Estimated 50 mL/min (50-200); Creatinine,Serum 1.04 mg/dL (0.55-1.02); Estimated Glomerular Filt Rate 52 ml/min (>60); GFR (African American) 63 ML/MIN (>60); Globulin 3.1 gm/dl (1.3-3.2); Glucose 87 mg/dL (74-106); Potassium 4.6 mmoL/L (3.5-5.1); Sodium 142 mmol/L (136-145); Total Protein,Serum 5.9 gm/dL (6.4-8.2)
--- NOTE | 2019-01-25 12:05 | PC.NURSE ---
0927-ASTON ZARATE PRESENT TO DRAW BLOOD FOR CBC AND CMP FOR ONCOLOGY APPT TODAY. PLAN IS FOR PT TO GET NEW CHEMO ORDERS AND RETURN TOMORROW FOR CHEMO INFUSION.
== END 2019-01-25 09:30 | disposition home or self-care (01) ==
LOC: INF 09:17
PROVIDERS: Visit Provider Internal Medicine Medical Oncology
DX: C50.911 Malignant neoplasm of unspecified site of right female breast (principal)
CPT/HCPCS: 36415; 80053; 85025

== ENCOUNTER 2019-01-26 08:55 | Outpatient (CLI) | payer MEDICARE, SELFPAY ==
[2019-01-26 09:50] VITALS: BP 126/79; PULSE 82; RESP 18; TEMP 36.4
[2019-01-26 10:05] VITALS: BP 119/63; PULSE 82; RESP 16
[2019-01-26 10:20] VITALS: BP 109/62; PULSE 79; RESP 16
[2019-01-26 10:35] VITALS: BP 125/78; PULSE 79; RESP 16
[2019-01-26 10:50] VITALS: BP 131/68; PULSE 79; RESP 16
[2019-01-26 11:05] VITALS: BP 140/70; PULSE 81; RESP 16
== END 2019-01-26 11:15 | disposition home or self-care (01) ==
LOC: INF 08:57
PROVIDERS: Visit Provider Internal Medicine Medical Oncology
DX: Z51.11 Encounter for antineoplastic chemotherapy (principal); C50.911 Malignant neoplasm of unspecified site of right female breast
CPT/HCPCS: 96413; 96417; J8501; J9045; J9201; Q0166

== ENCOUNTER 2019-02-02 08:27 | Outpatient (CLI) | payer MEDICARE, SELFPAY ==
[2019-02-02 08:29] VITALS: BMI 24.6
[2019-02-02 08:58] LABS: Basophils % 2.1 % (0.1-2.0); Eosinophils % 1.6 % (0.1-12.0); Hematocrit 29.7 % (37.0-47.0); Hemoglobin 9.1 g/dL (12.2-16.2); Lymphocytes # 0.7 K/mm3 (0.7-4.5); Lymphocytes % 41.1 % (10-50); Mean Corpuscular HGB Conc 30.8 g/dL (31.8-35.4); Mean Corpuscular Volume 103.7 fl (81-99); Mean Platelet Volume 8.7 fl (7.4-10.4); Monocytes # 0.1 K/mm3 (0.1-1.0); Monocytes % 7.5 % (1.7-9.3); Neutrophils # 0.8 K/mm3 (1.8-7.8); Neutrophils % 47.6 % (37.0-80.0); Platelet Count 321 K/mm3 (142-424); Red Blood Count 2.86 M/mm3 (4.20-5.40); Red Cell Distribution Width 23.7 % (11.5-17.5); White Blood Count 1.7 K/mm3 (4.8-10.8)
[2019-02-02 09:12] LABS: Alanine Aminotransferase 114 U/L (12-78); Albumin Level 2.9 gm/dL (3.4-5.0); Albumin/Globulin Ratio 0.8 (1.1-1.8); Alkaline Phosphatase 189 U/L (46-116); Aspartate Amino Transferase 178 U/L (15-37); Bilirubin,Total 0.7 mg/dL (0.2-1.0); Blood Urea Nitrogen 22 mg/dL (7-18); Calcium 8.9 mg/dL (8.5-10.1); Carbon Dioxide 24 mmol/L (21.0-32.0); Chloride 102 mmol/L (98-107); Creatinine Clearance Estimated 46 mL/min (50-200); Creatinine,Serum 1.16 mg/dL (0.55-1.02); Estimated Glomerular Filt Rate 46 ml/min (>60); GFR (African American) 55 ML/MIN (>60); Globulin 3.6 gm/dl (1.3-3.2); Glucose 87 mg/dL (74-106); Sodium 138 mmol/L (136-145); Total Protein,Serum 6.5 gm/dL (6.4-8.2)
[2019-02-02 10:00] VITALS: BP 131/70; PULSE 73; RESP 18; O2SAT 99
[2019-02-02 10:30] VITALS: BP 151/73; PULSE 71; RESP 18
[2019-02-02 11:00] VITALS: BP 145/84; PULSE 73; RESP 18
== END 2019-02-02 11:02 | disposition home or self-care (01) ==
LOC: INF 08:27
PROVIDERS: Visit Provider Internal Medicine Medical Oncology
DX: C50.911 Malignant neoplasm of unspecified site of right female breast (principal); D64.9 Anemia, unspecified
CPT/HCPCS: 80053; 85025; 96360

== ENCOUNTER 2019-02-07 08:55 | Outpatient (CLI) | payer MEDICARE, SELFPAY ==
[2019-02-07 09:14] VITALS: BMI 24.7
[2019-02-07 09:49] LABS: Eosinophils % 1.1 % (0.1-12.0); Hematocrit 28.7 % (37.0-47.0); Lymphocytes # 0.8 K/mm3 (0.7-4.5); Mean Corpuscular HGB Conc 31.2 g/dL (31.8-35.4); Mean Corpuscular Hemoglobin 32.9 pg (27.0-31.2); Mean Corpuscular Volume 105.6 fl (81-99); Mean Platelet Volume 8.4 fl (7.4-10.4); Monocytes # 0.4 K/mm3 (0.1-1.0); Monocytes % 13.3 % (1.7-9.3); Neutrophils # 1.6 K/mm3 (1.8-7.8); Neutrophils % 55.5 % (37.0-80.0); Platelet Count 113 K/mm3 (142-424); Red Blood Count 2.72 M/mm3 (4.20-5.40); White Blood Count 2.9 K/mm3 (4.8-10.8)
[2019-02-07 09:51] LABS: Red Cell Distribution Width 25.3 % (11.5-17.5)
[2019-02-07 10:35] VITALS: BP 123/67; PULSE 68; RESP 18; O2SAT 98
[2019-02-07 10:50] VITALS: BP 119/66; PULSE 68; RESP 18
[2019-02-07 11:05] VITALS: BP 129/63; PULSE 73; RESP 20
== END 2019-02-07 11:25 | disposition home or self-care (01) ==
LOC: INF 09:11
PROVIDERS: Visit Provider Internal Medicine Medical Oncology
DX: Z51.11 Encounter for antineoplastic chemotherapy (principal); C50.911 Malignant neoplasm of unspecified site of right female breast
CPT/HCPCS: 85025; 96413; J8501; J9201; Q0166

== ENCOUNTER → 2019-02-14 08:26 | Outpatient (CLI) | payer MEDICARE, SELFPAY ==
[2019-02-14 09:45] LABS: Blood Urea Nitrogen 22 mg/dL (7-18); Creatinine,Serum 1.17 mg/dL (0.55-1.02); Estimated Glomerular Filt Rate 45 ml/min (>60); GFR (African American) 55 ML/MIN (>60)
== END ==
PROVIDERS: Visit Provider Internal Medicine Medical Oncology
DX: C50.911 Malignant neoplasm of unspecified site of right female breast (principal)
CPT/HCPCS: 36415; 82565; 84520

== ENCOUNTER → 2019-02-15 09:02 | Outpatient (CLI) | payer MEDICARE, SELFPAY ==
--- NOTE | 2019-02-15 09:20 | CT_ITS ---
CT abdomen pelvis w con CLINICAL INDICATION: ITS.REASON: BREAST CA ORDERING PHYSICIAN: Marisol Saldana MD PATIENT AGE: 73 years COMPARISON: None TECHNIQUE: Contrast Used:Yes Oral Contrast: Gastroview given Axial images obtained with sagittal and coronal reformats. All CT scans at the facility use one or more dose reduction, viz: automated exposure control, ma/kV adjustment per patient size (including targeted exams where dose is matched to indication, i.e. head), or iterative reconstruction technique. FINDINGS: Lower thorax: No acute finding ABDOMEN: Liver: The multiple too numerous to count metastatic lesions involving liver again noted. The somewhat lobulated hypodense lesion superior aspect of the right lobe has shown interval increase in size from the previous study now measuring 2.0 x 2.2 x 1.2 cm. Also the dominant hypodense lesion left lobe of the liver has shown interval increase in size now measuring 1.3 x 1.3 x 1.1 cm. Gallbladder: Nondistended. No radio opaque stones. Pancreas: No masses or peripancreatic fluid collections. Spleen: Unremarkable. Adrenals: Unremarkable Kidneys/ureters: No masses. No renal calculi. No hydronephrosis. No perinephric fluid collections. No ureteral dilatation or obvious ureteral calculi. The kidneys show symmetrical function following injection of contrast. Stomach bowel: There is a small moderate sized sliding hiatal hernia. Otherwise the stomach and small bowel appear normal. There are scattered stool and gas seen throughout the colon. There is severe diffuse diverticulosis of the mid and lower descending colon and sigmoid colon but there is no definite evidence of diverticulitis. Appendix: Not deftly visualize but I see no pericecal inflammatory changes. PELVIS: Reproductive: There are stable calcified uterine fibroids noted. Bladder: Moderately distended with urine and appearing normal. ABDOMEN & PELVIS: Peritoneum: No abnormal fluid collections. No obvious inflammatory changes. No free air. The small ventral hernias are again noted stable and unchanged left upper quadrant along with a small umbilical hernia all containing fat only. Lymph nodes: No enlarged lymph nodes apparent. Vasculature: No evidence of abdominal aortic aneurysm. No retroperitoneal hemorrhage evident. Bones: There is stable multilevel degenerative changes of the lumbar spine with levoscoliotic curvature. There is no obvious blastic or lytic metastatic disease involving the lumbar spine or bony pelvis. IMPRESSION: 1. Diffuse metastatic disease involving the liver with some lesion showing definite interval increase in size from the previous study. 2. Marked diverticulosis descending and sigmoid colon without definite evidence of diverticulitis
--- NOTE | 2019-02-15 09:20 | CT_ITS ---
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 All CT scans at the facility use one or more dose reduction, viz: automated exposure control, ma/kV adjustment per patient size (including targeted exams where dose is matched to indication, i.e. head), or iterative reconstruction technique. FINDINGS: The lung mckeon are well expanded. Again noted is a small nodular lesion requested right middle lobe. This is stable and unchanged from previous exam and could represent a small area of postinflammatory scarring but metastatic lesion cannot be entirely excluded. There is a focal area of pleural-parenchymal scarring right lower lobe medial basilar segment which is stable. There is minimal atelectasis at the left base. There is no pleural fluid. There is no abnormal mediastinal or hilar lymphadenopathy. There is mild to moderate cardiomegaly with left ventricular prominence. Scans into the upper abdomen show multiple hypodense liver lesions consistent with metastatic disease which will be described on the CT abdomen study. Again noted are multilevel degenerative changes of the thoracic spine. The combined sclerotic and lytic appearance of the T10 and T11 vertebral bodies is stable and could be due to degenerative changes but early metastatic disease cannot be excluded. IMPRESSION: Basically stable CT scan the chest when compared to the previous study, no new findings to suggest additional metastatic disease
== END ==
PROVIDERS: PCP Family Medicine; Visit Provider Internal Medicine Medical Oncology
DX: C50.911 Malignant neoplasm of unspecified site of right female breast (principal); Z03.89 Encounter for observation for other suspected diseases and conditions ruled out
CPT/HCPCS: 71260; 74177; Q9967

== ENCOUNTER → 2019-02-21 08:37 | Outpatient (CLI) | payer MEDICARE, SELFPAY ==
[2019-02-21 09:08] LABS: Basophils % 1.1 % (0.1-2.0); Eosinophils # 0.1 K/mm3 (0.0-0.4); Eosinophils % 3.7 % (0.1-12.0); Hematocrit 26.8 % (37.0-47.0); Hemoglobin 8.1 g/dL (12.2-16.2); Lymphocytes # 0.8 K/mm3 (0.7-4.5); Lymphocytes % 23.3 % (10-50); Mean Corpuscular HGB Conc 30.2 g/dL (31.8-35.4); Mean Corpuscular Hemoglobin 32.2 pg (27.0-31.2); Mean Corpuscular Volume 106.5 fl (81-99); Mean Platelet Volume 9.3 fl (7.4-10.4); Monocytes # 0.5 K/mm3 (0.1-1.0); Monocytes % 13.7 % (1.7-9.3); Neutrophils # 1.9 K/mm3 (1.8-7.8); Neutrophils % 58.2 % (37.0-80.0); Platelet Count 162 K/mm3 (142-424); Red Blood Count 2.52 M/mm3 (4.20-5.40); White Blood Count 3.3 K/mm3 (4.8-10.8)
[2019-02-21 09:47] LABS: Alanine Aminotransferase 87 U/L (12-78); Albumin Level 2.8 gm/dL (3.4-5.0); Alkaline Phosphatase 155 U/L (46-116); Anion Gap 15.2 mEq/L (5-15); Aspartate Amino Transferase 159 U/L (15-37); Bilirubin,Total 0.9 mg/dL (0.2-1.0); Blood Urea Nitrogen 23 mg/dL (7-18); Calcium 9.5 mg/dL (8.5-10.1); Carbon Dioxide 24 mmol/L (21.0-32.0); Chloride 107 mmol/L (98-107); Creatinine,Serum 1.33 mg/dL (0.55-1.02); Estimated Glomerular Filt Rate 39 ml/min (>60); GFR (African American) 47 ML/MIN (>60); Globulin 2.8 gm/dl (1.3-3.2); Glucose 83 mg/dL (74-106); Potassium 4.2 mmoL/L (3.5-5.1); Sodium 142 mmol/L (136-145); Total Protein,Serum 5.6 gm/dL (6.4-8.2)
[2019-02-21 11:09] LABS: Red Cell Distribution Width 27.2 % (11.5-17.5)
== END ==
PROVIDERS: Visit Provider Internal Medicine Medical Oncology
DX: C50.911 Malignant neoplasm of unspecified site of right female breast (principal)
CPT/HCPCS: 36415; 80053; 85025

== ENCOUNTER 2019-02-23 08:50 | Outpatient (CLI) | payer MEDICARE, SELFPAY ==
[2019-02-23 09:30] VITALS: BP 112/74; PULSE 68; RESP 20; TEMP 36.9; O2SAT 95
[2019-02-23 10:15] VITALS: BP 137/74; PULSE 68; RESP 20; TEMP 36.9; O2SAT 95
[2019-02-23 10:45] VITALS: BP 129/66; PULSE 73; RESP 20; TEMP 36.9; O2SAT 95
[2019-02-23 11:45] VITALS: BP 112/74; PULSE 68; RESP 20; TEMP 36.9; O2SAT 95
== END 2019-02-23 11:45 | disposition home or self-care (01) ==
LOC: INF 08:51
PROVIDERS: Visit Provider Internal Medicine Medical Oncology
DX: Z51.11 Encounter for antineoplastic chemotherapy (principal); C50.911 Malignant neoplasm of unspecified site of right female breast
CPT/HCPCS: 96413; 96415; 96417; J8501; J9045; J9201; Q0166

== ENCOUNTER 2019-02-26 11:00 | Outpatient (RCR) | payer MEDICARE, SELFPAY ==
--- NOTE | 2019-02-05 11:50 | HMH.PTOPEV ---
PT Outpatient Evaluation Rehab PT Outpatient Evaluation Start: 02/05/19 11:29 Freq: Status: Active Protocol: Document 02/05/19 11:29 AL (Rec: 02/05/19 11:45 AL [id number]) Electronically Signed By Malcolm Machado, PT 02/05/19 11:29 Outpatient Therapy Subjective History Subjective History Pt reports partial thyroid excision in 2018 d/t non- cancerous nodule. Following thyroid sx. CT scan revealed cancerous lesions in liver. Pt reports starting 1st of potentially 4 rounds of chemotherapy treatment ~9 weeks ago. Pt reports generalized LE fatigue/ weakness with walking, standing, and kavitha. stair climbing. Pt also reports some disturbances w/dynamic standing balance since starting chemo. Chief Complaint Weakness Symptoms Relieved By Rest/Positioning Symptoms Aggravated By Standing,Physical Activity, Walking Prior Functional Limitations Standing,Walking,Stairs, Balance Current Functional Limitations Standing,Recreation Activity, Walking,Stairs,Balance Hip/Knee Eval Gait Observation General Gait Pattern Observation Wide Based Gait Assistive Device Assistive Devices None / NA MMT bilateral Hip Flexion Strength Grade 4 Good Hip Abduction Strength Grade 3+ Fair+ Hip Adduction Strength Grade 3+ Fair+ Hip Extension Strength Grade 4- Good- Hip External Rotation Strength Grade 4 Good Hip Internal Rotation Strength Grade 4- Good- Knee Extension Strength Grade 4 Good Knee Flexion Strength Grade 4 Good Ankle/Foot Eval MMT Ankle Dorsiflexion Strength Grade 5 Normal Ankle Plantarflexion Strength Grade 5 Normal Outpatient Therapy Assessment Impairments Problems/Impairmments Impaired Strength,Impaired Endurance,Impaired Walking, Impaired Standing,Impaired Stair Climbing,Impaired Squatting,Impaired Recreational Activities, Impaired Balance,Impaired Self Care/Self Management Prognosis Rehab Potential Good Clinical Impression Consistent with Diagnosis Yes Short Term Goals Number of Weeks 4 Increase Strength
== END 2019-02-26 11:05 | disposition home or self-care (01) ==
LOC: PT 11:00
PROVIDERS: Visit Provider Internal Medicine Medical Oncology
DX: C50.911 Malignant neoplasm of unspecified site of right female breast (principal); M62.81 Muscle weakness (generalized)
CPT/HCPCS: 97110; 97163

== ENCOUNTER 2019-03-05 08:37 | Outpatient (CLI) | payer MEDICARE, SELFPAY ==
[2019-03-05 08:40] VITALS: BMI 24.7
[2019-03-05 09:17] LABS: Basophils % 0.6 % (0.1-2.0); Hematocrit 26.4 % (37.0-47.0); Hemoglobin 8.1 g/dL (12.2-16.2); Lymphocytes # 0.9 K/mm3 (0.7-4.5); Lymphocytes % 37.1 % (10-50); Mean Corpuscular HGB Conc 30.7 g/dL (31.8-35.4); Mean Corpuscular Hemoglobin 34.2 pg (27.0-31.2); Mean Corpuscular Volume 111.2 fl (81-99); Monocytes # 0.3 K/mm3 (0.1-1.0); Neutrophils # 1.3 K/mm3 (1.8-7.8); Neutrophils % 51.2 % (37.0-80.0); Platelet Count 80 K/mm3 (142-424); Red Blood Count 2.37 M/mm3 (4.20-5.40); Red Cell Distribution Width 24.5 % (11.5-17.5); White Blood Count 2.6 K/mm3 (4.8-10.8)
[2019-03-05 10:31] VITALS: BP 157/79; PULSE 80; RESP 18; TEMP 36.6; O2SAT 97
[2019-03-05 11:01] VITALS: BP 148/77; PULSE 81; RESP 18; O2SAT 97
[2019-03-05 11:15] VITALS: BP 131/79; PULSE 73; RESP 18; O2SAT 97
== END 2019-03-05 11:20 | disposition home or self-care (01) ==
LOC: INF 08:37
PROVIDERS: Visit Provider Internal Medicine Medical Oncology
DX: Z51.11 Encounter for antineoplastic chemotherapy (principal); C50.911 Malignant neoplasm of unspecified site of right female breast; D64.9 Anemia, unspecified; R11.0 Nausea
CPT/HCPCS: 85025; 96413; J8501; J9201; Q0166

== ENCOUNTER 2019-03-12 00:18 | Observation (INO) ==
[2019-03-12 00:40] LABS: Lymphocytes # 0.7 K/mm3 (0.7-4.5); Neutrophils # 0.2 K/mm3 (1.8-7.8)
[2019-03-12 00:44] LABS: Eosinophils % 0.8 % (0.1-12.0); Lymphocytes % 76.5 % (10-50); Mean Corpuscular HGB Conc 32.3 g/dL (31.8-35.4); Mean Corpuscular Volume 114.6 fl (81-99); Mean Platelet Volume 9.1 fl (7.4-10.4); Monocytes % 3.9 % (1.7-9.3); Neutrophils % 17.8 % (37.0-80.0); Red Blood Count 2.05 M/mm3 (4.20-5.40); Red Cell Distribution Width 23.6 % (11.5-17.5)
[2019-03-12 00:48] LABS: Hematocrit 23.5 % (37.0-47.0); Hemoglobin 7.6 g/dL (12.2-16.2); Platelet Count 27 K/mm3 (142-424); White Blood Count 0.9 K/mm3 (4.8-10.8)
[2019-03-12 00:54] LABS: Anisocytosis 3+; Lymphocytes % 82 % (10-50); Macrocytosis 3+; Monocytes % 4 % (2-9); Neutrophils % 12 % (42-76); Total Cells Counted 50
[2019-03-12 00:57] LABS: Anion Gap 14.4 mEq/L (5-15); Blood Urea Nitrogen 29 mg/dL (7-18); Carbon Dioxide 24 mmol/L (21.0-32.0); Chloride 106 mmol/L (98-107); Glucose 91 mg/dL (74-106); Sodium 140 mmol/L (136-145)
--- NOTE | 2019-03-12 01:00 | Emergency Department Note ---
ED Disposition Clinical Impression: Thrombocytopenia Chest pain Qualifiers: Chest pain type: precordial pain Qualified Code(s): R07.2 - Precordial pain Neutropenia Qualifiers: Neutropenia type: secondary to cancer chemotherapy Qualified Code(s): D70.1 - Agranulocytosis secondary to cancer chemotherapy; T45.1X5A - Adverse effect of antineoplastic and immunosuppressive drugs, initial encounter Disposition: Admitted as Observation Condition on Discharge: Fair Referrals: Benny Baig MD [Staff Physician] - - Critical Care Critical Care Time: No Attestation: On 03/12/19, the high probability of a clinically significant, sudden or life threatening deterioration of the following system(s) required my full and direct attention, intervention and personal management. The time I documented below is in addition to time spent performing reported procedures but includes the following listed in this critical care notation. Medical Decision Making - Medical Records Medical records reviewed: Yes: I reviewed the patient's medical records. - [place]want Inquiry Pt receiving controlled substance: No Vital Signs: 03/12/19 00:19 03/12/19 00:59 Temperature 98.1 F Temperature Source Oral Pulse Rate [Right] 116 H 66 Respiratory Rate 18 18 Blood Pressure [Right Arm] 185/101 H 181/79 H Blood Pressure Mean [Right Arm] 129 113 Blood Pressure Source [Right Arm] Automatic Cuff Blood Pressure Position [Right Arm] Sitting 02 Sat by Pulse Oximetry 99 100 - Lab Data Lab results reviewed: Yes: I reviewed the patient's lab results. Lab Results 03/12/19 00:27: WBC 0.9 L*, RBC 2.05 L, Hgb 7.6 L*, Hct 23.5 L*, MCV 114.6 H, MCH 37.0 H, MCHC 32.3, RDW 23.6 H, Plt Count 27 L*, MPV 9.1, Neut % (Auto) 17.8 L, Lymph % (Auto) 76.5 H, Garfield % (Auto) 3.9, Eos % (Auto) 0.8, Baso % (Auto) 1.0, Neut # (Auto) 0.2 L*, Lymph # (Auto) 0.7, Garfield # (Auto) 0.0 L, Eos # (Auto) 0.0, Baso # (Auto) 0.0, Total Counted 50, Neutrophils % (Manual) 12 L, Band Neutrophils % 2.0, Lymphocytes % (Manual) 82 H, Monocytes % (Manual) 4, Platelet Estimate Marked decrease, Poikilocytosis 3+, Anisocytosis 3+, Macrocytosis 3+ 03/12/19 00:27: Sodium 140, Potassium 4.4, Chloride 106, Carbon Dioxide 24, Anion Gap 14.4, BUN 29 H, Creatinine 1.21 H, Estimated Creat Clear 44, Estimated GFR 44 L, Est GFR ( Amer) 53 L, Glucose 91, Calcium 9.0, Troponin I < 0.02 Result diagrams: 03/12/19 00:27 03/12/19 00:27 Orders (Tests/Meds): ED MEDICATIONS Discontinued Medications Generic Name Dose Route Start Last Admin Trade Name Freq PRN Reason Stop Dose Admin Aspirin 324 mg 03/12/19 00:38 03/12/19 00:41 Aspirin 81mg Chewable Tablet PO 03/12/19 00:39 Not Given ONCE ONE Nitroglycerin 1 gm 03/12/19 00:37 03/12/19 00:40 Nitroglycerin 1 Inch Oint Udp TD 03/12/19 00:38 1 gm ONCE ONE Administration ORDERS Category Date Time Status XR chest 2V Stat Exams 03/12/19 00:24 Taken ECG Request by /Eveline Stat Y 03/12/19 00:24 Ordered - Radiology Data #1 Image(s): Chest Image Reviewed: Yes I reviewed the patient's radiology image Preliminary Findings: Abnormal - ECG Data Tracing #1 Normal Sinus Rhythm: Yes Ischemic changes: non-specific ST-T wave changes ECG compared to prior tracings: there are no significant changes Chest Pain HPI - General Chief Complaint: Chest Pain Stated Complaint: Chest pain Time Seen by Provider: 03/12/19 00:25 Mode of Arrival: Ambulatory Source of Information: Patient, Spouse, Medical Record Limitations: No Limitations Description of Symptoms (Recalled from ER Triage Doc. by RN): Pt states for the past 2 days she has had intermintent CP that radiates to her left arm, jaw, and throat. Pt nikita is recieving chemo for cancer of the breast, colon, and liver. - History of Present Illness HPI narrative: pt presents to the ed with ant chest pain described as tightness with rad to jaw - this is new for pt - she has known metastatic breast cancer and on chemo - MD complaint: chest pain indicative of cardiac Onset (ago): day(s) Duration: intermittent Activity at onset: during rest Pain location: substernal Severity: moderate Quality: tightness Pain radiation: jaw/teeth Risk Factors for CAD: Family Hx of CAD Treatments prior to or on arrival for Cardiac Chest Pain: none - DEISY Score for Non-Stemi Age of Patient: 70-79 years old Heart Rate: 110-149 bpm Systolic Blood Pressure: 160-199 mmHg Serum Creatinine: 1.20-1.59 mg/dl CHF Killip Class: I-No CHF Other Risk Factors: None Non-Stemi Risk Score: 119 - Related Data On Oral Contraceptives: No Home Medications Medication Instructions Recorded Confirmed glucosamine-chondroitin 250 mg-200 2 tab-cap PO TID 10/05/17 03/12/19 mg tablet lactobacillus combination no.9 4 4,000 mmu cells PO DAILY 10/05/17 03/12/19 billion cell capsule naproxen 250 mg tablet 250 mg PO NEEDED PRN tab 10/05/17 03/12/19 Multivitamin [Multivitamins] 1 each PO DAILY 04/12/18 03/12/19 calcium carbonate 600 mg calcium 600 mg PO BID tab 08/31/18 03/12/19 (1,500 mg) tablet levothyroxine 100 mcg capsule 100 mcg PO DAILY 08/31/18 03/12/19 ondansetron HCl 8 mg tablet 8 mg PO QD-BID PRN 12/21/18 03/12/19 bisoprolol 5 1 tab PO DAILY #30 tab 02/22/19 03/12/19 mg-hydrochlorothiazide 6.25 mg tablet Allergies Allergy/AdvReac Type Severity Reaction Status Date / Time Penicillins [PENICILLINS] Allergy Unknown Verified 03/09/19 13:59 [facility] History - Hepatitis A Screen Drug use history?: No High risk sexual behaviors?: No History of sexually transmitted infection?: No Currently employed?: No Childcare worker?: No Do you have indoor plumbing?: Yes Do you have electricity?: Yes Attestation statement:: This patient has been screened for Hepatitis A risk factors. I have reviewed the patient's past medical history: Yes Medical History: Reports:: Cancer, Hypertension Denies:: Diabetes Mellitus Type 1, Diabetes Mellitus Type 2 Other Medical History: Reports: Arthritis, Thyroid Disease Laterality Cases: Other Surgeries: Yes: No Previous Surgery, Cancer Surgery, Colonoscopy, Colon Resection, Thyroidectomy Amputation: No Fractures: No - Social History Smoking Status: Former smoker #Yrs smoked (if former smoker): 20 Alcohol Intake: never Alcohol Intake Frequency:: other Substance Use Type: denies use Occupational Status: retired Housing: house Household Members: spouse Family Hx:: Cancer ROS Obtained: Yes All systems reviewed & no additional complaints - Constitutional Constitutional: Denies fever(s) - Eyes Eyes: Denies change in vision - ENT Ears, Nose, Mouth, and Throat: Denies sore throat - Cardiovascular Cardiovascular: Reports as per HPI, Reports chest pain, Reports chest pain at rest, Reports radiating jaw, neck or arm pain - Respiratory Respiratory: No cough - Gastrointestinal Gastrointestingal: Denies: vomiting - Genitourinary Female Genitourinary: Denies hematuria - Musculoskeletal Musculoskeletal: Denies joint swelling - Integumentary/Breasts Skin/Breast: Denies rash - Neurologic Neurologic: Denies seizure-like activity Physical Exam - General General appearance: alert - Head Head exam: normocephalic - Eye Eye exam: Present: PERRL, EOMI. Absent: scleral icterus - ENT ENT exam: Present: mucous membranes dry - Neck Neck exam: Present: trachea midline - Respiratory Respiratory exam: Present: normal lung sounds bilaterally. Absent: respiratory distress - Cardiovascular Cardiovascular exam: Present: regular rate, systolic murmur, +S4 - Abdominal Exam Abdominal exam: Present: soft - Extremities Exam Extremities exam: Absent: calf tenderness - Neurological Exam Neurological exam: Present: alert, oriented X3, CN II-XII intact - Psychiatric Psychiatric exam: Present: normal affect - Skin Skin exam: Absent: rash
--- NOTE | 2019-03-12 07:35 | Pharmacy Consult Notes ---
[facility] Pharmacy VTE Monitoring - Patient Demographics Admission date: 03/12/19 Report Date: 03/12/19 Time: 07:35 Allergies/Adverse Reactions: Patient Allergies Penicillins [PENICILLINS] Allergy (Unknown, Verified 03/09/19 13:59) Height: 1.63 m Weight: 72.773 kg Patient Problems: Current Active Problems Chest pain (Acute) Neutropenia (Acute) Thrombocytopenia (Acute) - VTE Risk Labs: VTE Related Lab Results Hgb 7.6 g/dL (12.2-16.2) L* 03/12/19 00:27 Hct 23.5 % (37.0-47.0) L* 03/12/19 00:27 Plt Count 27 K/mm3 (142-424) L* 03/12/19 00:27 BUN 29 mg/dL (7-18) H 03/12/19 00:27 Creatinine 1.21 mg/dL (0.55-1.02) H 03/12/19 00:27 Estimated Creat Clear 44 mL/min (50-200) 03/12/19 00:27 Was VTE Risk Assessment Performed: Yes VTE Score: 4 VTE Risk Level: Low Risk - Prophylaxis VTE Prophylaxis Ordered?: Yes Types of VTE Prophylaxis: TEDS Knee High Location of Applied Device: Bilateral Lower Extremeties - VTE Diagnosis Confirmed Treatment or plan recommended: Continue Current Treatment
--- NOTE | 2019-03-12 08:03 | History & Physical Report ---
*Admission Date: 03/12/19 *Chief complaint: Chest tightness and shortness of breath *History of present illness: 73-year-old female with history of metastatic breast cancer presented to the emergency department with dyspnea on exertion over the course of the last week that escalated yesterday to the point where her dyspnea did not resolve with rest. She had associated chest tightness and a tight sensation that radiated up into the neck and jaws as well as down into both arms and shoulders. Patient presented to the emergency department. She was given nitroglycerin and discomfort resolved. She was admitted for serial troponins, cardiac consultation, echocardiogram. Patient currently has metastatic breast cancer and is undergoing chemotherapy under the supervision of Dr. Saldana. Of note on admission her hemoglobin was 7.6 which is the lowest recorded hemoglobin the patient has had. She is neutropenic as well as thrombocytopenic. The patient reports associated ankle swelling over the last week as well. She was a pack per day smoker for 18 years. During her hospitalization where her breast cancer was diagnosed due to metastases to the large intestine patient had an atrial arrhythmia postoperatively. Since that time she has been on beta-blockers. [facility] History Medical History: Reports:: Cancer, Hypertension Denies:: Diabetes Mellitus Type 1, Diabetes Mellitus Type 2, MRSA *Have you ever received a pneumonia vaccine?: Yes *Have you received a flu vaccine this season?: Yes Other Medical History: Reports: Arthritis, Thyroid Disease Laterality Cases: Right: Mastectomy Other Surgeries: Yes: No Previous Surgery, Cancer Surgery, Colonoscopy, Colon Resection, Thyroidectomy Amputation: No Fractures: No - *Social History Educational Level: Completed Graduate School Smoking Status: Former smoker # Packs/Day (cigarettes): 1 #Yrs smoked (if former smoker): 18 Alcohol Intake: former Alcohol Intake Frequency:: holidays/special occasions only Substance Use Type: denies use *Occupational Status:: retired Housing: house Household Members: spouse *Travel in the last 8 weeks: Inside the [place] Family Hx:: Cancer, Heart Attack Review of Systems - Review of Systems Review of systems:: pertinent systems reviewed and negative unless documented below - *Neurologic Denies seizure-like activity Meds Home Medications Medication Instructions Recorded Confirmed Type naproxen 250 mg tablet 250 mg PO DAILY tab 10/05/17 03/12/19 History Multivitamin [Multivitamins] 1 each PO DAILY 04/12/18 03/12/19 History calcium carbonate 600 mg calcium 500 mg PO DAILY tab 08/31/18 03/12/19 History (1,500 mg) tablet levothyroxine 100 mcg capsule 100 mcg PO DAILY 08/31/18 03/12/19 History ondansetron HCl 8 mg tablet 8 mg PO BIDP PRN 12/21/18 03/12/19 History bisoprolol 5 1 tab PO DAILY #30 tab 02/22/19 03/12/19 History mg-hydrochlorothiazide 6.25 mg tablet Allergies Allergy/AdvReac Type Severity Reaction Status Date / Time Penicillins [PENICILLINS] Allergy Unknown Verified 03/09/19 13:59 Exam Vital signs and Labs for Last 24 Hours: Temp Pulse Resp BP Pulse Ox 98.3 F 79 18 125/68 99 03/12/19 04:00 03/12/19 04:00 03/12/19 04:00 03/12/19 04:00 03/12/19 04:00 Laboratory Results - last 24 hr 03/12/19 00:27: WBC 0.9 L*, RBC 2.05 L, Hgb 7.6 L*, Hct 23.5 L*, MCV 114.6 H, MCH 37.0 H, MCHC 32.3, RDW 23.6 H, Plt Count 27 L*, MPV 9.1, Neut % (Auto) 17.8 L, Lymph % (Auto) 76.5 H, Whiteside % (Auto) 3.9, Eos % (Auto) 0.8, Baso % (Auto) 1.0, Neut # (Auto) 0.2 L*, Lymph # (Auto) 0.7, Wh[place] # (Auto) 0.0 L, Eos # (Auto) 0.0, Baso # (Auto) 0.0, Total Counted 50, Neutrophils % (Manual) 12 L, Band Neutrophils % 2.0, Lymphocytes % (Manual) 82 H, Monocytes % (Manual) 4, Platelet Estimate Marked decrease, Poikilocytosis 3+, Anisocytosis 3+, Macrocytosis 3+ 03/12/19 00:27: Sodium 140, Potassium 4.4, Chloride 106, Carbon Dioxide 24, Anion Gap 14.4, BUN 29 H, Creatinine 1.21 H, Estimated Creat Clear 44, Estimated GFR 44 L, Est GFR ( Amer) 53 L, Glucose 91, Calcium 9.0, Troponin I < 0.02 I & O for Last 24 hours: Intake & Output 03/09/19 03/10/19 03/11/19 03/12/19 11:59 11:59 11:59 11:59 Intake Total 114 / 114 Balance 114 / 114 Weight 160 lb 7 oz - Constitutional no acute distress - *Routine HEENT Exam Head: Present: normocephalic Eye: Present: EOMI ENT: Present: mucous membranes moist - *Routine Respiratory Exam Present: CTA bilaterally - *Routine Cardiovascular Exam Present: RRR, Normal S1, Normal S2 - *Routine Abdominal Exam Present: soft, normoactive bowel sounds. Absent: tenderness, distended - *Routine Extremities Exam Comments: Ankle edema bilaterally Assessment and Plan (1) Angina at rest Current visit: Yes Status: Acute Category: Medical Code(s): I20.8 - Other forms of angina pectoris (2) Anemia due to chemotherapy Current visit: Yes Status: Acute Category: Medical Code(s): D64.81 - Anemia due to antineoplastic chemotherapy; T45.1X5A - Adverse effect of antineoplastic and immunosuppressive drugs, initial encounter (3) Neutropenia Current visit: Yes Status: Acute Qualifiers: Neutropenia type: secondary to cancer chemotherapy Qualified Code(s): D70.1 - Agranulocytosis secondary to cancer chemotherapy; T45.1X5A - Adverse effect of antineoplastic and immunosuppressive drugs, initial encounter Category: Medical Code(s): D70.9 - Neutropenia, unspecified (4) Thrombocytopenia Current visit: Yes Status: Acute Category: Medical Code(s): D69.6 - Thrombocytopenia, unspecified (5) Breast cancer Current visit: Yes Status: Acute Category: Medical Code(s): C50.919 - Malignant neoplasm of unspecified site of unspecified female breast - Assessment and plan all Dx Assessment and Plan for all problems:: 1. Transfuse 2 units of packed red blood cells today as I believe anemia is contributed to some of her anginal symptoms 2. Cardiology consultation and echo
--- NOTE | 2019-03-12 11:20 | Consult Report ---
History of Present Illness Consult date: 03/12/19 Requesting physician: Benny Mora Consult reason: chest pain Chief complaint: chest pain Additional Medical History:: 1. Metastatic breast cancer A. S/p colon mass removal/partial colectomy, 2016, with chemotherapy B. Liver metastasis, 2019, on chemotherapy 2. History of atrial arrhythmia, 2016, on beta-royce therapy since then 3. Hypertension 4. Remote history of tobacco use of less than 18 pack years 5. Hypothyroidism, on replacement therapy History of present illness: 73-year-old female with history of metastatic breast cancer presented to the emergency department with dyspnea on exertion over the course of the last week that escalated yesterday to the point where her dyspnea did not resolve with rest. She had associated chest tightness and a tight sensation that radiated up into the neck and jaws as well as down into both arms and shoulders. Patient presented to the emergency department. She was given nitroglycerin and discomfort resolved. She was admitted for serial troponins, cardiac consultation, echocardiogram. Patient currently has metastatic breast cancer and is undergoing chemotherapy under the supervision of Dr. Saldana. Of note on admission her hemoglobin was 7.6 which is the lowest recorded hemoglobin the patient has had. She is neutropenic as well as thrombocytopenic. The patient reports associated ankle swelling over the last week as well. She was a pack per day smoker for 18 years. During her hospitalization where her breast cancer was diagnosed due to metastases to the large intestine patient had an atrial arrhythmia postoperatively. Since that time she has been on beta-blockers. The above per Dr. Mora Admission EKG is sinus tach with low voltage, LAD, inferior infarct pattern and PRWP anteriorly vs old anteroseptal ND. No acute ST segment changes. Serial troponins normal X 2. [facility] History Medical History: Reports:: Cancer, Hypertension Denies:: Diabetes Mellitus Type 1, Diabetes Mellitus Type 2, MRSA *Have you ever received a pneumonia vaccine?: Yes *Have you received a flu vaccine this season?: Yes Other Medical History: Reports: Arthritis, Thyroid Disease Laterality Cases: Right: Mastectomy Other Surgeries: Yes: No Previous Surgery, Cancer Surgery, Colonoscopy, Colon Resection, Thyroidectomy Amputation: No Fractures: No - *Social History Educational Level: Completed Graduate School Smoking Status: Former smoker # Packs/Day (cigarettes): 1 #Yrs smoked (if former smoker): 18 Alcohol Intake: former Alcohol Intake Frequency:: holidays/special occasions only Substance Use Type: denies use *Occupational Status:: retired Housing: house Household Members: spouse *Travel in the last 8 weeks: Inside the [place] Family Hx:: Cancer, Heart Attack Meds Home Medications Medication Instructions Recorded Confirmed Type naproxen 250 mg tablet 250 mg PO DAILY tab 10/05/17 03/12/19 History Multivitamin [Multivitamins] 1 each PO DAILY 04/12/18 03/12/19 History calcium carbonate 600 mg calcium 500 mg PO DAILY tab 08/31/18 03/12/19 History (1,500 mg) tablet levothyroxine 100 mcg capsule 100 mcg PO DAILY 08/31/18 03/12/19 History ondansetron HCl 8 mg tablet 8 mg PO BIDP PRN 12/21/18 03/12/19 History bisoprolol 5 1 tab PO DAILY #30 tab 02/22/19 03/12/19 History mg-hydrochlorothiazide 6.25 mg tablet Allergies Allergy/AdvReac Type Severity Reaction Status Date / Time Penicillins [PENICILLINS] Allergy Unknown Verified 03/09/19 13:59 Review of Systems - *Cardiovascular Reports chest pain, Reports shortness of breath, Reports shortness of breath with activity - *Respiratory Reports shortness of breath with activity - *Gastrointestinal Denies abdominal pain, Denies vomiting - *Genitourinary Denies side pain, Denies blood in urine - *Musculoskeletal Denies joint pain, Denies back pain - *Neurologic Denies seizure-like activity Exam Vital signs and Labs for Last 24 Hours: Temp Pulse Resp BP Pulse Ox 98.2 F 79 20 111/59 L 100 03/12/19 10:45 03/12/19 10:45 03/12/19 10:45 03/12/19 10:45 03/12/19 10:45 Laboratory Results - last 24 hr 03/12/19 00:27: WBC 0.9 L*, RBC 2.05 L, Hgb 7.6 L*, Hct 23.5 L*, MCV 114.6 H, MCH 37.0 H, MCHC 32.3, RDW 23.6 H, Plt Count 27 L*, MPV 9.1, Neut % (Auto) 17.8 L, Lymph % (Auto) 76.5 H, [place] % (Auto) 3.9, Eos % (Auto) 0.8, Baso % (Auto) 1.0, Neut # (Auto) 0.2 L*, Lymph # (Auto) 0.7, [place] # (Auto) 0.0 L, Eos # (Auto) 0.0, Baso # (Auto) 0.0, Total Counted 50, Neutrophils % (Manual) 12 L, Band Neutrophils % 2.0, Lymphocytes % (Manual) 82 H, Monocytes % (Manual) 4, Platelet Estimate Marked decrease, Poikilocytosis 3+, Anisocytosis 3+, Macrocytosis 3+ 03/12/19 00:27: Sodium 140, Potassium 4.4, Chloride 106, Carbon Dioxide 24, Anion Gap 14.4, BUN 29 H, Creatinine 1.21 H, Estimated Creat Clear 44, Estimated GFR 44 L, Est GFR ( Amer) 53 L, Glucose 91, Calcium 9.0, Troponin I < 0.02 03/12/19 07:38: Troponin I < 0.02 03/12/19 08:45: Blood Type O Positive, Antibody Screen Negative, Crossmatch (AHG) See Detail I & O for Last 24 hours: Intake & Output 03/09/19 03/10/19 03/11/19 03/12/19 11:59 11:59 11:59 11:59 Intake Total 383 / 383 Balance 383 / 383 Weight 160 lb 7 oz - *Routine HEENT Exam Head: Present: normocephalic Eye: Present: EOMI, PERRL ENT: Present: mucous membranes moist - *Routine Neck Exam Present: supple. Absent: JVD, carotid bruit - *Routine Respiratory Exam Present: CTA bilaterally. Absent: accessory muscle use, rales, rhonchi, wheezes - *Routine Cardiovascular Exam Present: RRR. Absent: murmur, gallop, rubs - *Routine Abdominal Exam Present: soft. Absent: tenderness, distended, guarding - *Routine Extremities Exam Absent: edema, calf tenderness - *Routine Neurological Exam Present: alert, oriented X3, moving all extremities Assessment and Plan (1) Angina at rest Current visit: Yes Status: Acute Category: Medical Code(s): I20.8 - Other forms of angina pectoris (2) Anemia due to chemotherapy Current visit: Yes Status: Acute Category: Medical Code(s): D64.81 - Anemia due to antineoplastic chemotherapy; T45.1X5A - Adverse effect of antineoplastic and immunosuppressive drugs, initial encounter (3) Neutropenia Current visit: Yes Status: Acute Qualifiers: Neutropenia type: secondary to cancer chemotherapy Qualified Code(s): D70.1 - Agranulocytosis secondary to cancer chemotherapy; T45.1X5A - Adverse effect of antineoplastic and immunosuppressive drugs, initial encounter Category: Medical Code(s): D70.9 - Neutropenia, unspecified (4) Thrombocytopenia Current visit: Yes Status: Acute Category: Medical Code(s): D69.6 - Thrombocytopenia, unspecified (5) Breast cancer Current visit: Yes Status: Acute Category: Medical Code(s): C50.919 - Malignant neoplasm of unspecified site of unspecified female breast (6) Hypertension Current visit: Yes Status: Acute Category: Medical Code(s): I10 - Essential (primary) hypertension (7) Quit using tobacco in remote past Current visit: Yes Status: Acute Category: Social Hx Code(s): Z91.89 - Other specified personal risk factors, not elsewhere classified - Assessment and plan all Dx Assessment and Plan for all problems:: 1. Angina pectoris in a patient with severe anemia secondary to chemotherapy for metastatic breast cancer. Patient is receiving 2 units of blood today. Her echocardiogram this a.m. shows preserved ejection fraction. Due to headache from nitroglycerin paste I have removed that at the time of my exam. I suspect that she will not need it after blood transfusion. Patient denies any previous cardiac work-up prior to her surgery in the past therefore would recommend Lexiscan Myoview in the near future to evaluate for coronary artery disease. With the patient's pancytopenia, would not pursue invasive work-up or stent placement at this time, but would rather work with medical therapy. Continue bisoprolol therapy and if needed then add either amlodipine or isosorbide mononitrate for recurrent angina. 2. Further recommendations pending above results.
[2019-03-12 17:33] LABS: Basophils % 0.8 % (0.1-2.0); Eosinophils % 0.7 % (0.1-12.0); Lymphocytes # 0.7 K/mm3 (0.7-4.5); Lymphocytes % 49.9 % (10-50); Mean Corpuscular HGB Conc 31.6 g/dL (31.8-35.4); Mean Corpuscular Volume 106.1 fl (81-99); Mean Platelet Volume 10.1 fl (7.4-10.4); Monocytes # 0.1 K/mm3 (0.1-1.0); Monocytes % 7.6 % (1.7-9.3); Neutrophils # 0.6 K/mm3 (1.8-7.8); Neutrophils % 40.9 % (37.0-80.0); Red Blood Count 3.02 M/mm3 (4.20-5.40); Red Cell Distribution Width 24.3 % (11.5-17.5); White Blood Count 1.5 K/mm3 (4.8-10.8)
[2019-03-12 17:40] LABS: Platelet Count 25 K/mm3 (142-424)
[2019-03-12 17:41] LABS: Hemoglobin 10.2 g/dL (12.2-16.2)
--- NOTE | 2019-03-12 17:53 | Cardiology Report ---
PROCEDURE: 2-D M-mode and color Doppler study INDICATIONS FOR THE TEST: Chest pain+ COPD Heart Murmur+ Tobacco SmokingEX Palpitations Fatigue Syncope Edema+ Hypertension Diabetes Mellitus+ Rheumatic Fever SOB+MARRERO Obesity Hyperlipidemia Family History HD Additional History CA BREAST, COLON, LIVER, CHEMO PATIENT INFORMATION HEIGHT: 65 WEIGHT:150 GENDER: Female B/P:180/79 2-D/M-MODE INTERPRETATION: 2-D MEASUREMENTS OBSERVED VALUES IN CMS Right Ventricular Dimension (RVDd) 2.2 Interventricular Septum (Thickness)(IVsd) 1.4 Left Ventricular Internal Dimensions(LVIDd) 4.3 Left Ventricular Posterior Wall (Thickness)(LVPWd) 1.0 Aortic Root 3.1 Aortic Cusp Separation 1.9 Left Atrial Dimensions (LAD) 3.9 2D 1. Left atrium is mildly enlarged, left ventricle is normal size, mild concentric left ventricular hypertrophy, visually estimated ejection fraction of 55% with no regional wall motion abnormality. 2. The right atrium and right ventricle are normal size and contractility. 3. The aortic valve is minimally thickened and fibrosed. 4. The mitral and tricuspid valvular grossly normal. 5. The pulmonic valve is poorly visualized. 6. No significant pericardial effusion noted. DOPPLER INTERROGATION: Doppler interrogation of the aortic, mitral and tricuspid valvular presence of mild mitral and tricuspid regurgitation, tricuspid regurgitation jet velocity is inadequate for calculation of the right ventricular systolic pressure, grade 1 diastolic dysfunction seen with tissue Doppler evidence of raised left atrial pressure. CONCLUSION: 1. Mildly enlarged left atrium, normal left ventricular size, mild concentric left ventricular hypertrophy, visually estimated ejection fraction of 55% with no regional wall motion abnormality, grade 1 diastolic dysfunction seen with tissue Doppler evidence of raised left atrial pressure. 2. Mild mitral and tricuspid regurgitation 3. In pericardial effusion noted.
--- NOTE | 2019-03-13 07:11 | Progress Note ---
Internal Medicine - PN: Subj *Date: 03/13/19 *Time: 07:09 Interval history: Patient feels well this morning. Dyspnea on exertion resolved after her first unit of blood yesterday. She received a total of 2 units of packed red blood cells. Posttransfusion hemoglobin was 10.2. She denies any recurrence of shortness of breath or chest pain overnight. Exam Vital signs and Labs for Last 24 Hours: Temp Pulse Resp BP Pulse Ox 97.9 F 69 14 135/70 94 L 03/13/19 05:09 03/13/19 05:09 03/13/19 05:09 03/13/19 05:09 03/13/19 05:09 Laboratory Results - last 24 hr 03/12/19 07:38: Troponin I < 0.02 03/12/19 08:45: Blood Type O Positive, Antibody Screen Negative, Crossmatch (AHG) See Detail 03/12/19 17:16: WBC 1.5 L* D, RBC 3.02 L D, Hgb 10.2 L D, Hct 32.0 L, MCV 106.1 H, MCH 33.5 H, MCHC 31.6 L, RDW 24.3 H, Plt Count 25 L*, MPV 10.1, Neut % (Auto) 40.9, Lymph % (Auto) 49.9, [place] % (Auto) 7.6, Eos % (Auto) 0.7, Baso % (Auto) 0.8, Neut # (Auto) 0.6 L*, Lymph # (Auto) 0.7, [place] # (Auto) 0.1, Eos # (Auto) 0.0, Baso # (Auto) 0.0 I & O for Last 24 hours: Intake & Output 03/10/19 03/11/19 03/12/19 03/13/19 11:59 11:59 11:59 11:59 Intake Total 383 / 383 1400 / 1400 Balance 383 / 383 1400 / 1400 Weight 160 lb 7 oz 160 lb 6.992 oz Narrative: Patient appears comfortable. Lungs are clear. Heart has a regular rate and rhythm. Lower extremity edema has resolved Assessment and Plan (1) Angina at rest Current visit: Yes Status: Acute Category: Medical Code(s): I20.8 - Other forms of angina pectoris (2) Anemia due to chemotherapy Current visit: Yes Status: Acute Category: Medical Code(s): D64.81 - Anemia due to antineoplastic chemotherapy; T45.1X5A - Adverse effect of antineoplastic and immunosuppressive drugs, initial encounter (3) Neutropenia Current visit: Yes Status: Acute Qualifiers: Neutropenia type: secondary to cancer chemotherapy Qualified Code(s): D70.1 - Agranulocytosis secondary to cancer chemotherapy; T45.1X5A - Adverse effect of antineoplastic and immunosuppressive drugs, initial encounter Category: Medical Code(s): D70.9 - Neutropenia, unspecified (4) Thrombocytopenia Current visit: Yes Status: Acute Category: Medical Code(s): D69.6 - Thrombocytopenia, unspecified (5) Breast cancer Current visit: Yes Status: Acute Category: Medical Code(s): C50.919 - Malignant neoplasm of unspecified site of unspecified female breast (6) Hypertension Current visit: Yes Status: Acute Category: Medical Code(s): I10 - Essential (primary) hypertension (7) Quit using tobacco in remote past Current visit: Yes Status: Acute Category: Social Hx Code(s): Z91.89 - Other specified personal risk factors, not elsewhere classified - Assessment and plan all Dx Assessment and Plan for all problems:: Repeat CBC this morning and anticipate discharge later today. Patient is thrombocytopenic as well and is scheduled for port placement tomorrow. I have spoken with her surgeon Dr. Louise and prior to discharge today we will arrange for patient to have platelets that will be available tomorrow during her procedure.
[2019-03-13 07:39] LABS: Basophils % 0.5 % (0.1-2.0); Eosinophils % 1.5 % (0.1-12.0); Hematocrit 29.4 % (37.0-47.0); Hemoglobin 9.7 g/dL (12.2-16.2); Lymphocytes # 0.8 K/mm3 (0.7-4.5); Mean Corpuscular Volume 105.4 fl (81-99); Mean Platelet Volume 10.8 fl (7.4-10.4); Monocytes # 0.1 K/mm3 (0.1-1.0); Neutrophils # 0.7 K/mm3 (1.8-7.8); Red Blood Count 2.79 M/mm3 (4.20-5.40); Red Cell Distribution Width 24.5 % (11.5-17.5); White Blood Count 1.7 K/mm3 (4.8-10.8)
--- NOTE | 2019-03-13 07:44 | Discharge Summary ---
General - General Admission date:: 03/12/19 Discharge date: 03/13/19 HPI HPI: 73-year-old female with history of metastatic breast cancer presented to the emergency department with dyspnea on exertion over the course of the last week that escalated yesterday to the point where her dyspnea did not resolve with rest. She had associated chest tightness and a tight sensation that radiated up into the neck and jaws as well as down into both arms and shoulders. Patient presented to the emergency department. She was given nitroglycerin and discomfort resolved. She was admitted for serial troponins, cardiac consultation, echocardiogram. Patient currently has metastatic breast cancer and is undergoing chemotherapy under the supervision of Dr. Saldana. Of note on admission her hemoglobin was 7.6 which is the lowest recorded hemoglobin the patient has had. She is neutropenic as well as thrombocytopenic. The patient reports associated ankle swelling over the last week as well. She was a pack per day smoker for 18 years. During her hospitalization where her breast cancer was diagnosed due to metastases to the large intestine patient had an atrial arrhythmia postoperatively. Since that time she has been on beta-blockers. Hospital Course Hospital Course: Patient was admitted and the following morning, March 12, patient was transfused 2 units of packed red blood cells. After the first unit of packed red blood cells dyspnea resolved. Second unit was given. Posttransfusion hemoglobin was 10.2. Following morning CBC was repeated. As patient's symptoms had resolved and were felt to be due to anemia she was discharged home. Cardiology was consulted due to the patient's angina. They agreed with plan of care and adjustment of medications were suggested if necessary along with outpatient Myoview stress test. Appreciate cardiology's help with this patient. Echocardiogram was performed in house. Patient had normal LV function. Patient has metastatic breast cancer and is undergoing chemotherapy. She is pancytopenic. She is scheduled for port placement tomorrow March [address] Louise. We will make arrangements for platelets to be available tomorrow morning as patient may require perioperative or intraoperative transfusion of platelets. Repeat CBC has been ordered with results to be called to Dr. Louise. Objective Vital signs: Temp Pulse Resp BP Pulse Ox 97.9 F 69 14 135/70 94 L 03/13/19 05:09 03/13/19 05:09 03/13/19 05:09 03/13/19 05:09 03/13/19 05:09 Results Labs on day of discharge: Labs from last 24 hours 03/12/19 03/12/19 03/12/19 17:16 08:45 07:38 WBC 1.5 L* D RBC 3.02 L D Hgb 10.2 L D Hct 32.0 L MCV 106.1 H MCH 33.5 H MCHC 31.6 L RDW 24.3 H Plt Count 25 L* MPV 10.1 Neut % (Auto) 40.9 Lymph % (Auto) 49.9 [place] % (Auto) 7.6 Eos % (Auto) 0.7 Baso % (Auto) 0.8 Neut # (Auto) 0.6 L* Lymph # (Auto) 0.7 [place] # (Auto) 0.1 Eos # (Auto) 0.0 Baso # (Auto) 0.0 Troponin I < 0.02 Blood Type O Positive Antibody Screen Negative Crossmatch (AHG) See Detail DS: Diagnosis - Discharge Diagnosis (1) Anemia due to chemotherapy Status: Acute (2) Angina at rest Status: Acute (3) Neutropenia Status: Acute (4) Thrombocytopenia Status: Acute (5) Breast cancer Status: Acute (6) Hypertension Status: Acute (7) Quit using tobacco in remote past Status: Acute Discharge Plan - Patient Discharge Instructions ACTIVITY: Continue current activity DIET: continue same diet Patient Instructions: Anemia, DI for Blood Transfusion, DI for Chest Pain, DI for Neutropenia - Follow up Plan Follow up with: Benny Mora MD [Primary Care Provider] - Disposition: Home, Self-Shelter Medications: Home Medications Medication Instructions Recorded Confirmed Type naproxen 250 mg tablet 250 mg PO DAILY tab 10/05/17 03/12/19 History Multivitamin [Multivitamins] 1 each PO DAILY 04/12/18 03/12/19 History calcium carbonate 600 mg calcium 500 mg PO DAILY tab 08/31/18 03/12/19 History (1,500 mg) tablet levothyroxine 100 mcg capsule 100 mcg PO DAILY 08/31/18 03/12/19 History ondansetron HCl 8 mg tablet 8 mg PO BIDP PRN 12/21/18 03/12/19 History bisoprolol 5 1 tab PO DAILY #30 tab 02/22/19 03/12/19 History mg-hydrochlorothiazide 6.25 mg tablet Prescriptions/Medication Reconciliation: Continued naproxen 250 mg tablet 250 mg PO DAILY tab levothyroxine 100 mcg capsule 100 mcg PO DAILY calcium carbonate 600 mg calcium (1,500 mg) tablet 500 mg PO DAILY tab ondansetron HCl 8 mg tablet 8 mg PO BIDP PRN PRN Reason: Nausea bisoprolol 5 mg-hydrochlorothiazide 6.25 mg tablet 1 tab PO DAILY #30 tab Multivitamin [Multivitamins] 1 each PO DAILY
[2019-03-13 08:43] LABS: Platelet Count 18 K/mm3 (142-424)
== END 2019-03-13 11:59 | disposition home or self-care (01) ==
LOC: 2ND 00:18 → ER 00:18 → 2ND 02:10
PROVIDERS: ADMIT Emergency Medicine; ATTEND Family Medicine
DX: Z09 Encounter for follow-up examination after completed treatment for conditions other than malignant neoplasm; D64.81 Anemia due to antineoplastic chemotherapy; T45.1X5A Adverse effect of antineoplastic and immunosuppressive drugs, initial encounter; D61.818 Other pancytopenia; Z87.891 Personal history of nicotine dependence; I10 Essential (primary) hypertension; Z91.89 Other specified personal risk factors, not elsewhere classified; I20.8 Other forms of angina pectoris
CPT/HCPCS: 36415; 71020; 71046; 80048; 84484; 85007; 85025; 86850; 93005; 93306; 99284; G0378; J2405; P9016

== ENCOUNTER → 2019-03-13 17:30 | Outpatient (CLI) | payer MEDICARE, SELFPAY ==
[2019-03-13 18:05] LABS: Adenovirus F 40/41, stool Not Detected (NotDetected); Astrovirus Not Detected (NotDetected); Campylobacter Not Detected (NotDetected); Clostridium Difficile A/B, PCR Not Detected (NotDetected); Cryptosporidium Not Detected (NotDetected); Cyclospora Cayetanesis Not Detected (NotDetected); Entamoeba histolytica Not Detected (NotDetected); Enteroaggregative E coli Not Detected (NotDetected); Enteropathogenic E coli Not Detected (NotDetected); Enterotoxigenic E coli Not Detected (NotDetected); Giardia lamblia Not Detected (NotDetected); Norovirus Not Detected (NotDetected); Plesimonas Shigalloides, PCR Not Detected (NotDetected); Rotavirus A Not Detected (NotDetected); Salmonella, PCR Not Detected (NotDetected); Sapovirus Not Detected (NotDetected); Shiga-like toxin E coli Not Detected (NotDetected); Shigella Enterovasive E coli Not Detected (NotDetected); Vibrio Cholerae Not Detected (NotDetected); Vibrio, PCR Not Detected (NotDetected); Yersinia Entercolitica, PCR Not Detected (NotDetected)
== END ==
LOC: LAB 17:32 → LAB.DROPOF 03-14 13:52
PROVIDERS: PCP Family Medicine; Visit Provider Family Medicine
DX: R19.7 Diarrhea, unspecified (principal); C50.911 Malignant neoplasm of unspecified site of right female breast; D64.9 Anemia, unspecified
CPT/HCPCS: 87506

== ENCOUNTER 2019-03-15 08:25 | Outpatient (CLI) | payer MEDICARE, SELFPAY ==
[2019-03-15 08:35] VITALS: BMI 25.2
--- NOTE | 2019-03-15 08:57 | PC.NURSE ---
0855-ASTON FROM LAB PRESENT TO DRAW BLOOD FOR CBC, CMP, IRON AND TIBC, FERRITIN, AND ERYTHROPOETIN.
[2019-03-15 09:09] LABS: Basophils % 0.3 % (0.1-2.0); Eosinophils % 1.2 % (0.1-12.0); Hematocrit 30.8 % (37.0-47.0); Lymphocytes # 0.7 K/mm3 (0.7-4.5); Lymphocytes % 36.4 % (10-50); Mean Corpuscular HGB Conc 32.6 g/dL (31.8-35.4); Mean Corpuscular Hemoglobin 34.8 pg (27.0-31.2); Mean Corpuscular Volume 106.8 fl (81-99); Mean Platelet Volume 11.4 fl (7.4-10.4); Monocytes # 0.2 K/mm3 (0.1-1.0); Monocytes % 11.4 % (1.7-9.3); Neutrophils % 50.6 % (37.0-80.0); Red Blood Count 2.88 M/mm3 (4.20-5.40); Red Cell Distribution Width 24.5 % (11.5-17.5)
[2019-03-15 09:21] LABS: Platelet Count 42 K/mm3 (142-424)
[2019-03-15 09:45] LABS: Alanine Aminotransferase 67 U/L (12-78); Albumin Level 2.3 gm/dL (3.4-5.0); Albumin/Globulin Ratio 0.7 (1.1-1.8); Alkaline Phosphatase 148 U/L (46-116); Anion Gap 12.5 mEq/L (5-15); Aspartate Amino Transferase 128 U/L (15-37); Bilirubin,Total 1.2 mg/dL (0.2-1.0); Blood Urea Nitrogen 24 mg/dL (7-18); Calcium 8.9 mg/dL (8.5-10.1); Carbon Dioxide 25 mmol/L (21.0-32.0); Chloride 108 mmol/L (98-107); Creatinine Clearance Estimated 37 mL/min (50-200); Creatinine,Serum 1.45 mg/dL (0.55-1.02); Estimated Glomerular Filt Rate 35 ml/min (>60); GFR (African American) 43 ML/MIN (>60); Globulin 3.3 gm/dl (1.3-3.2); Glucose 86 mg/dL (74-106); Potassium 4.5 mmoL/L (3.5-5.1); Sodium 141 mmol/L (136-145); Total Protein,Serum 5.6 gm/dL (6.4-8.2)
[2019-03-15 12:22] LABS: Ferritin 2202 ng/mL (8-388)
[2019-03-16 08:13] LABS: Iron 110 ug/dL (27-139); UIBC 111 ug/dL (118-369)
[2019-03-16 12:36] LABS: Iron Saturation 50 % (15-55)
[2019-03-16 20:35] LABS: Erythropoietin 40.7 mIU/mL (2.6-18.5)
== END 2019-03-15 09:05 | disposition home or self-care (01) ==
LOC: INF 08:33
PROVIDERS: Visit Provider Internal Medicine Medical Oncology
DX: C50.911 Malignant neoplasm of unspecified site of right female breast (principal); D64.9 Anemia, unspecified
CPT/HCPCS: 36415; 80053; 82668; 82728; 83540; 83550; 85025

== ENCOUNTER → 2019-03-19 08:58 | Outpatient (CLI) | payer MEDICARE, SELFPAY ==
[2019-03-19 10:04] LABS: Basophils % 1.2 % (0.1-2.0); Eosinophils # 0.1 K/mm3 (0.0-0.4); Eosinophils % 1.8 % (0.1-12.0); Hematocrit 31.5 % (37.0-47.0); Hemoglobin 10.1 g/dL (12.2-16.2); Lymphocytes # 0.6 K/mm3 (0.7-4.5); Lymphocytes % 23.5 % (10-50); Mean Corpuscular HGB Conc 32.1 g/dL (31.8-35.4); Mean Corpuscular Hemoglobin 35.9 pg (27.0-31.2); Mean Corpuscular Volume 111.9 fl (81-99); Monocytes # 0.3 K/mm3 (0.1-1.0); Monocytes % 11.8 % (1.7-9.3); Neutrophils # 1.6 K/mm3 (1.8-7.8); Neutrophils % 61.7 % (37.0-80.0); Platelet Count 181 K/mm3 (142-424); Red Blood Count 2.82 M/mm3 (4.20-5.40); Red Cell Distribution Width 24.8 % (11.5-17.5); White Blood Count 2.6 K/mm3 (4.8-10.8)
[2019-03-19 11:11] LABS: Alanine Aminotransferase 91 U/L (12-78); Albumin Level 2.5 gm/dL (3.4-5.0); Albumin/Globulin Ratio 0.8 (1.1-1.8); Alkaline Phosphatase 167 U/L (46-116); Anion Gap 13.9 mEq/L (5-15); Aspartate Amino Transferase 201 U/L (15-37); Bilirubin,Total 1.5 mg/dL (0.2-1.0); Blood Urea Nitrogen 22 mg/dL (7-18); Calcium 9.3 mg/dL (8.5-10.1); Carbon Dioxide 24 mmol/L (21.0-32.0); Chloride 107 mmol/L (98-107); Creatinine,Serum 1.32 mg/dL (0.55-1.02); Estimated Glomerular Filt Rate 39 ml/min (>60); GFR (African American) 48 ML/MIN (>60); Globulin 3.2 gm/dl (1.3-3.2); Glucose 76 mg/dL (74-106); Potassium 3.9 mmoL/L (3.5-5.1); Sodium 141 mmol/L (136-145); Total Protein,Serum 5.7 gm/dL (6.4-8.2)
[2019-03-19 11:27] LABS: Free T4 (Free Thyroxine) 2.22 ng/dl (0.76-1.46); Thyroid Stimulating Hormone 1.57 uIU/ml (0.358-3.740)
== END ==
PROVIDERS: Internal Medicine Medical Oncology; Otolaryngology; Visit Provider Surgery
DX: E03.9 Hypothyroidism, unspecified (principal); J40 Bronchitis, not specified as acute or chronic
CPT/HCPCS: 36415; 80053; 84439; 84443; 85025

== ENCOUNTER 2019-03-22 09:14 | Outpatient (CLI) | payer MEDICARE, SELFPAY ==
[2019-03-22 09:15] VITALS: BMI 26.6
[2019-03-22 09:35] LABS: Basophils % 0.9 % (0.1-2.0); Eosinophils # 0.1 K/mm3 (0.0-0.4); Hematocrit 30.4 % (37.0-47.0); Hemoglobin 9.7 g/dL (12.2-16.2); Lymphocytes # 0.7 K/mm3 (0.7-4.5); Lymphocytes % 25.9 % (10-50); Mean Corpuscular HGB Conc 31.8 g/dL (31.8-35.4); Mean Corpuscular Hemoglobin 35.5 pg (27.0-31.2); Mean Corpuscular Volume 111.5 fl (81-99); Mean Platelet Volume 8.2 fl (7.4-10.4); Monocytes # 0.4 K/mm3 (0.1-1.0); Monocytes % 14.5 % (1.7-9.3); Neutrophils # 1.6 K/mm3 (1.8-7.8); Neutrophils % 56.8 % (37.0-80.0); Platelet Count 260 K/mm3 (142-424); Red Blood Count 2.73 M/mm3 (4.20-5.40); Red Cell Distribution Width 24.2 % (11.5-17.5); White Blood Count 2.8 K/mm3 (4.8-10.8)
[2019-03-22 11:55] VITALS: BP 112/65; PULSE 65; RESP 18; TEMP 36.2; O2SAT 100
[2019-03-22 12:10] VITALS: BP 113/67; PULSE 71; RESP 18
[2019-03-22 12:25] VITALS: BP 131/80; PULSE 64; RESP 18
[2019-03-22 12:40] VITALS: BP 152/77; PULSE 72; RESP 18
[2019-03-22 12:55] VITALS: BP 139/70; PULSE 66; RESP 18
[2019-03-22 13:05] VITALS: BP 137/65; PULSE 69; RESP 18
== END 2019-03-22 13:30 | disposition home or self-care (01) ==
LOC: INF 09:15
PROVIDERS: Visit Provider Internal Medicine Medical Oncology
DX: Z51.11 Encounter for antineoplastic chemotherapy (principal); C50.911 Malignant neoplasm of unspecified site of right female breast
CPT/HCPCS: 85025; 96413; 96417; J1642; J9045; J9201; Q0166

== ENCOUNTER 2019-03-29 12:47 | Outpatient (CLI) | payer MEDICARE, SELFPAY ==
[2019-03-29 12:48] VITALS: BMI 25.0
[2019-03-29 13:17] LABS: Basophils % 1.2 % (0.1-2.0); Eosinophils % 0.8 % (0.1-12.0); Hematocrit 28.4 % (37.0-47.0); Hemoglobin 8.9 g/dL (12.2-16.2); Lymphocytes # 0.7 K/mm3 (0.7-4.5); Lymphocytes % 33.7 % (10-50); Mean Corpuscular HGB Conc 31.2 g/dL (31.8-35.4); Mean Corpuscular Hemoglobin 35.4 pg (27.0-31.2); Mean Corpuscular Volume 113.5 fl (81-99); Mean Platelet Volume 8.8 fl (7.4-10.4); Monocytes # 0.2 K/mm3 (0.1-1.0); Neutrophils # 1.2 K/mm3 (1.8-7.8); Neutrophils % 56.4 % (37.0-80.0); Platelet Count 109 K/mm3 (142-424); Red Cell Distribution Width 22.8 % (11.5-17.5); White Blood Count 2.2 K/mm3 (4.8-10.8)
[2019-03-29 13:50] VITALS: BP 135/69; PULSE 79; RESP 20; TEMP 36.6; O2SAT 99
[2019-03-29 14:04] LABS: Alanine Aminotransferase 90 U/L (12-78); Albumin Level 2.2 gm/dL (3.4-5.0); Albumin/Globulin Ratio 0.7 (1.1-1.8); Alkaline Phosphatase 162 U/L (46-116); Anion Gap 11.8 mEq/L (5-15); Aspartate Amino Transferase 176 U/L (15-37); Bilirubin,Total 1.5 mg/dL (0.2-1.0); Blood Urea Nitrogen 42 mg/dL (7-18); Calcium 9.1 mg/dL (8.5-10.1); Carbon Dioxide 24 mmol/L (21.0-32.0); Chloride 106 mmol/L (98-107); Creatinine Clearance Estimated 33 mL/min (50-200); Creatinine,Serum 1.59 mg/dL (0.55-1.02); Estimated Glomerular Filt Rate 32 ml/min (>60); GFR (African American) 38 ML/MIN (>60); Globulin 3.2 gm/dl (1.3-3.2); Glucose 131 mg/dL (74-106); Potassium 3.8 mmoL/L (3.5-5.1); Sodium 138 mmol/L (136-145); Total Protein,Serum 5.4 gm/dL (6.4-8.2)
[2019-03-29 14:20] VITALS: BP 131/67; PULSE 76; RESP 20; O2SAT 98
[2019-03-29 14:50] VITALS: BP 138/65; PULSE 74; RESP 20; O2SAT 98
== END 2019-03-29 15:00 | disposition home or self-care (01) ==
LOC: INF 12:47
PROVIDERS: Visit Provider Internal Medicine Medical Oncology
DX: C50.911 Malignant neoplasm of unspecified site of right female breast (principal)
CPT/HCPCS: 80053; 85025; 96360; J1642

== ENCOUNTER 2019-04-02 11:11 | Outpatient (CLI) | payer MEDICARE, SELFPAY ==
[2019-04-02 11:26] VITALS: BP 153/75; PULSE 68; RESP 18; TEMP 36.5; O2SAT 98
== END 2019-04-02 11:35 | disposition home or self-care (01) ==
LOC: INF 11:11
PROVIDERS: Visit Provider Internal Medicine Medical Oncology
DX: C50.911 Malignant neoplasm of unspecified site of right female breast (principal); D64.81 Anemia due to antineoplastic chemotherapy
CPT/HCPCS: 96372; J0885

== ENCOUNTER 2019-04-12 09:29 | Outpatient (CLI) | payer MEDICARE, SELFPAY ==
[2019-04-12 09:31] VITALS: BMI 27.4
[2019-04-12 09:48] LABS: Basophils # 0.1 K/mm3 (0-0.2); Basophils % 1.6 % (0.1-2.0); Eosinophils # 0.1 K/mm3 (0.0-0.4); Eosinophils % 3.7 % (0.1-12.0); Hematocrit 31.3 % (37.0-47.0); Hemoglobin 9.8 g/dL (12.2-16.2); Lymphocytes # 0.8 K/mm3 (0.7-4.5); Lymphocytes % 22.1 % (10-50); Mean Corpuscular HGB Conc 31.3 g/dL (31.8-35.4); Mean Corpuscular Hemoglobin 36.5 pg (27.0-31.2); Mean Corpuscular Volume 116.7 fl (81-99); Mean Platelet Volume 8.8 fl (7.4-10.4); Monocytes # 0.5 K/mm3 (0.1-1.0); Monocytes % 13.5 % (1.7-9.3); Neutrophils # 2.1 K/mm3 (1.8-7.8); Neutrophils % 59.2 % (37.0-80.0); Platelet Count 96 K/mm3 (142-424); Red Blood Count 2.68 M/mm3 (4.20-5.40); Red Cell Distribution Width 24.1 % (11.5-17.5); White Blood Count 3.6 K/mm3 (4.8-10.8)
[2019-04-12 10:08] LABS: Alanine Aminotransferase 101 U/L (12-78); Albumin Level 2.3 gm/dL (3.4-5.0); Albumin/Globulin Ratio 0.7 (1.1-1.8); Alkaline Phosphatase 179 U/L (46-116); Anion Gap 14.5 mEq/L (5-15); Aspartate Amino Transferase 218 U/L (15-37); Bilirubin,Total 2.4 mg/dL (0.2-1.0); Blood Urea Nitrogen 41 mg/dL (7-18); Calcium 9.8 mg/dL (8.5-10.1); Carbon Dioxide 23 mmol/L (21.0-32.0); Chloride 105 mmol/L (98-107); Creatinine Clearance Estimated 30 mL/min (50-200); Creatinine,Serum 1.87 mg/dL (0.55-1.02); Estimated Glomerular Filt Rate 26 ml/min (>60); GFR (African American) 32 ML/MIN (>60); Globulin 3.5 gm/dl (1.3-3.2); Glucose 90 mg/dL (74-106); Potassium 3.5 mmoL/L (3.5-5.1); Sodium 139 mmol/L (136-145); Total Protein,Serum 5.8 gm/dL (6.4-8.2)
[2019-04-12 12:32] VITALS: BP 131/70; PULSE 72; RESP 18; TEMP 36.6; O2SAT 98
[2019-04-12 13:02] VITALS: BP 128/67; PULSE 76; RESP 18; O2SAT 97
[2019-04-12 13:32] VITALS: BP 133/69; PULSE 74; RESP 18; O2SAT 97
[2019-04-12 13:55] VITALS: BP 149/73; PULSE 75; RESP 18; O2SAT 97
== END 2019-04-12 14:00 | disposition home or self-care (01) ==
LOC: INF 09:29
PROVIDERS: Visit Provider Internal Medicine Medical Oncology
DX: Z51.11 Encounter for antineoplastic chemotherapy (principal); C50.911 Malignant neoplasm of unspecified site of right female breast
CPT/HCPCS: 80053; 85025; 96413; 96417; J1642; J8501; J9045; J9201; Q0166

== ENCOUNTER → 2019-04-13 11:31 | Outpatient (CLI) | payer MEDICARE, SELFPAY ==
--- NOTE | 2019-04-13 11:40 | CT_ITS ---
Procedure: CT ABDOMEN PELVIS WO CON CLINICAL INDICATION: BREAST CA elevated liver enzymes, abdominal bloating COMPARISON: [id number] CT abdomen pelvis w con from 02/15/2019 TECHNIQUE: Axial images obtained with sagittal and coronal reformats. All CT scans at the facility use one or more dose reduction, viz: automated exposure control, ma/kV adjustment per patient size (including targeted exams where dose is matched to indication, i.e. head), or iterative reconstruction technique. Readi-Cat was given but no IV contrast was used FINDINGS: Lower thorax: No acute finding no pulmonary nodules visualized and no pleural fluid seen ABDOMEN: Liver: There has been marked interval increase in size of the multiple too numerous to count hypodense metastatic lesions involving the liver. Many of the lesions have coalesced into larger foci since the previous exam. There is very little remaining normal liver parenchyma in the left lobe in particular. Gallbladder: The gallbladder is normal in size and now is a small calcified gallstone which was not definitely seen previously. Pancreas: No masses or peripancreatic fluid collections. Spleen: unremarkable Adrenals: unremarkable Kidneys/ureters: unremarkable PELVIS: Reproductive: Stable with prominently calcified uterine fibroids noted Bladder: Nondistended. No obvious stones or masses. Appendix: Not definitely visualized but there are no pericecal inflammatory changes noted. ABDOMEN & PELVIS: Stomach bowel: Nondistended. No obvious mass or thickening. The small bowel appears normal. There is marked and diffuse diverticulosis of the descending and sigmoid colon without definite evidence of diverticulitis. Peritoneum: There is a large amount of abdominal ascites with fluid surrounding the liver and spleen and prominent fluid around loops of small bowel and projecting over the dome of the urinary bladder and in the cul-de-sac. Lymph nodes: No enlarged lymph nodes apparent. Vasculature: No evidence of abdominal aortic aneurysm. No retroperitoneal hemorrhage evident. Bones: There multilevel degenerate changes of the lower thoracic and lumbar spine with vacuum phenomena of the L3-4, L4-5 and L5-S1 disc. There is moderate diffuse levo scoliotic curvature of the lumbar spine. There is no obvious lytic or blastic metastatic lesion involving the visualized portions of the lower thoracic and lumbar spine. Other there is prominent diffuse generalized anasarca of the subcutaneous tissues of the abdominal wall most prominent in the lower abdomen and bilateral flanks and upper pelvis. IMPRESSION: Marked interval progression of diffuse metastatic disease involving the liver now with moderate abdominal ascites and interval appearance of diffuse generalized anasarca of the subcutaneous tissues of the abdomen and pelvis Dictated by: Dr. Kwaku Candelario MD 04/13/2019 12:[address] Kwaku Candelario MD in [place] 04/13/2019 12:42
--- NOTE | 2019-04-13 11:40 | CT_ITS ---
PROCEDURE: CT CHEST WO CON CLINICAL INDICATION: BREAST CA COMPARISON: CHESTW CT chest w con from 02/15/2019 TECHNIQUE: Axial images obtained with sagittal and coronal reformats. All CT scans at the facility use one or more dose reduction, viz: automated exposure control, ma/kV adjustment per patient size (including targeted exams where dose is matched to indication, i.e. head), or iterative reconstruction technique. FINDINGS: HEART: There is mild generalized cardiomegaly with left ventricular prominence. There is no pericardial effusion. MEDIASTINAL AND HILAR STRUCTURES: No mediastinal or hilar mass evident. No dominant adenopathy. PULMONARY ARTERIES: Unremarkable as evaluated without IV contrast AORTA: No acute finding. No thoracic aortic aneurysm or dissection evident LUNGS:The lung mckeon are clear of infiltrate. The tiny density peripheral aspect of the right middle lobe is stable and unchanged and likely is a small postinflammatory scar, doubt metastatic disease. There is minimal atelectasis or scarring at the left base laterally. PLEURAL SPACES: No significant effusion. No evidence of pneumothorax. BONY STRUCTURES: There mild diffuse multilevel degenerate changes of the thoracic spine with no obvious metastatic lesion identified. Mild diffuse dextro scoliotic curvature of the lower thoracic spine is noted. LYMPH NODES: There are couple of normal-size nodes in both axilla. UPPER ABDOMEN: See abdominal CT scan report ADDITIONAL FINDINGS: No other significant abnormalities. IMPRESSION: Essentially stable CT scan of the chest with findings basically unchanged from the previous exam with no definite evidence of intrathoracic metastatic disease noted Dictated by: Dr. Kwaku Candelario MD 04/13/2019 12:[address] Kwaku Candelario MD in [place] 04/13/2019 12:53
== END ==
PROVIDERS: PCP Family Medicine; Visit Provider Internal Medicine Medical Oncology
DX: C50.911 Malignant neoplasm of unspecified site of right female breast (principal)
CPT/HCPCS: 71250; 74176

== ENCOUNTER 2019-04-19 10:13 | Outpatient (CLI) | payer MEDICARE, SELFPAY ==
[2019-04-19 10:16] VITALS: BMI 27.4
[2019-04-19 10:26] LABS: Basophils % 1.5 % (0.1-2.0); Eosinophils % 1.7 % (0.1-12.0); Hematocrit 27.7 % (37.0-47.0); Hemoglobin 8.7 g/dL (12.2-16.2); Lymphocytes # 0.5 K/mm3 (0.7-4.5); Lymphocytes % 29.6 % (10-50); Mean Corpuscular HGB Conc 31.6 g/dL (31.8-35.4); Mean Corpuscular Hemoglobin 37.2 pg (27.0-31.2); Mean Corpuscular Volume 117.6 fl (81-99); Mean Platelet Volume 10.2 fl (7.4-10.4); Monocytes % 2.8 % (1.7-9.3); Neutrophils % 64.3 % (37.0-80.0); Red Blood Count 2.35 M/mm3 (4.20-5.40); Red Cell Distribution Width 22.2 % (11.5-17.5); White Blood Count 1.6 K/mm3 (4.8-10.8)
[2019-04-19 10:37] LABS: Alanine Aminotransferase 94 U/L (12-78); Albumin/Globulin Ratio 0.6 (1.1-1.8); Alkaline Phosphatase 165 U/L (46-116); Anion Gap 15.5 mEq/L (5-15); Aspartate Amino Transferase 176 U/L (15-37); Bilirubin,Total 5.4 mg/dL (0.2-1.0); Blood Urea Nitrogen 51 mg/dL (7-18); Calcium 8.7 mg/dL (8.5-10.1); Carbon Dioxide 24 mmol/L (21.0-32.0); Chloride 102 mmol/L (98-107); Creatinine Clearance Estimated 33 mL/min (50-200); Creatinine,Serum 1.69 mg/dL (0.55-1.02); Estimated Glomerular Filt Rate 30 ml/min (>60); GFR (African American) 36 ML/MIN (>60); Globulin 3.6 gm/dl (1.3-3.2); Glucose 98 mg/dL (74-106); Potassium 3.5 mmoL/L (3.5-5.1); Sodium 138 mmol/L (136-145); Total Protein,Serum 5.6 gm/dL (6.4-8.2)
[2019-04-19 10:50] LABS: Platelet Count 31 K/mm3 (142-424)
== END 2019-04-19 11:20 | disposition home or self-care (01) ==
LOC: INF 10:13
PROVIDERS: Visit Provider Internal Medicine Medical Oncology
DX: Z51.11 Encounter for antineoplastic chemotherapy (principal); C50.912 Malignant neoplasm of unspecified site of left female breast
CPT/HCPCS: 80053; 85025; J1642